=== PATIENT | female | born 1935 | race Caucasian/White ===

== ENCOUNTER → 2016-09-28 | Outpatient (REF) | payer MEDICARE ==
[2016-09-28 18:42] LABS: CALCIUM LEVEL 10.3 MG/DL (8.8-10.2); CREATININE FOR GFR 0.98 MG/DL (0.55-1.02); GLOMERULAR FILTRATION RATE 58.3 (>39); PHOSPHORUS LEVEL 3.5 MG/DL (2.5-4.9)
== END ==
LOC: M LABDRAWC 16:22
PROVIDERS: ATTEND Nurse Practitioner Family
DX: N18.3 Chronic kidney disease, stage 3 (moderate) (principal); N25.81 Secondary hyperparathyroidism of renal origin; E55.9 Vitamin D deficiency, unspecified

== ENCOUNTER → 2016-11-25 | Outpatient (REF) | payer MEDICARE ==
[2016-11-25 11:27] LABS: MEAN CORPUSCULAR HEMOGLOBIN 30.7 pg (27.0-33.0); MEAN CORPUSCULAR VOLUME 92.8 fl (80.0-96.0); RED CELL DISTRIBUTION WIDTH 12.8 % (11.5-14.5); WHITE BLOOD COUNT 5.5 K/mm3 (4.0-10.0)
[2016-11-25 11:40] LABS: ALBUMIN 3.9 GM/DL (3.2-5.2); ALBUMIN/GLOBULIN RATIO 1.34 (1.00-1.93); CALCIUM LEVEL 9.8 MG/DL (8.8-10.2); CREATININE FOR GFR 1.02 MG/DL (0.55-1.02); GLOMERULAR FILTRATION RATE 55.7 (>39); POTASSIUM SERUM 4.2 MEQ/L (3.5-5.1); TOTAL PROTEIN 6.8 GM/DL (6.4-8.2)
== END ==
LOC: M SFHCCLAY 08:28
PROVIDERS: ATTEND Nurse Practitioner Family
DX: K21.9 Gastro-esophageal reflux disease without esophagitis (principal); I10 Essential (primary) hypertension; E78.4 Other hyperlipidemia; M81.0 Age-related osteoporosis without current pathological fracture

== ENCOUNTER → 2017-03-24 | Outpatient (REF) | payer MEDICARE ==
[2017-03-24 19:08] LABS: ALBUMIN 3.9 GM/DL (3.2-5.2); CALCIUM LEVEL 10.1 MG/DL (8.8-10.2); CREATININE FOR GFR 1.18 MG/DL (0.55-1.02); PHOSPHORUS LEVEL 3.4 MG/DL (2.5-4.9); POTASSIUM SERUM 4.6 MEQ/L (3.5-5.1)
== END ==
LOC: M LAB REF 18:30
PROVIDERS: ATTEND Internal Medicine Nephrology
DX: N18.3 Chronic kidney disease, stage 3 (moderate) (principal); N25.81 Secondary hyperparathyroidism of renal origin; E55.9 Vitamin D deficiency, unspecified

== ENCOUNTER 2017-11-02 09:20 | Day surgery (SDC) | payer MEDICARE ==
[~2017-11-02 09:20] MED LIST: ACETAMINOPHEN 325 MG TAB PO; PHENYLEPHRINE HCL 10 % OPHTH. SOL 5ML OD
[2017-11-02] MEDS ORDERED: TRIMETHOBENZAMIDE 300 MG CAP PO (09:30)
[2017-11-02] MEDS: CYCLOPENTOLATE 2% OPHTH SOLN 2ML BTL OD (09:41)
[2017-11-02] MEDS: PHENYLEPHRINE 2.5% OPHTH SOL 2ML OD (09:41)
[2017-11-02] MEDS: TROPICAMIDE 1% OPHTH SOLN 2ML OD (09:42)
[2017-11-02] MEDS: LIDOCAINE 3.5 % 1ML OPHTH TOPICAL GEL OU (09:42)
[2017-11-02] MEDS: OFLOXACIN 0.3 % (OCUFLOX) OPTH SOL 5ML OD (09:42)
[2017-11-02] MEDS ORDERED: fentaNYL 100 MCG/2 ML INJECTION (J3010) As Ordered (09:55)
[2017-11-02] MEDS ORDERED: MIDAZOLAM INJ 2 MG/2 ML VIAL (J2250) As Ordered (09:55)
[2017-11-02] MEDS: POVIDONE-IODINE 5% OPHTH PREP SOL 30ML As Ordered (10:14)
[2017-11-02] MEDS: MOXIFLOXACIN IN BSS 0.25MG/0.25ML INTRACAMERAL INJ (OR EYE ONLY)(J2280) As Ordered (10:20)
[2017-11-02] MEDS: BSS with VANC/TOB/EPI for EYE CASES IR (10:20)
[2017-11-02] MEDS: TRIAMCINOLONE PRES FR 40 MG/ML 1ML(TRIESENCE)(OR EYE ONLY)(J3300 PER 1MG) As Ordered (10:20)
[2017-11-02] MEDS: HEALON DUET (HEALON 10MG/ML 0.55ML & HEALON ENDOCOAT 30MG/ML 0.85ML) As Ordered (10:20)
[2017-11-02] MEDS: LIDOCAINE 1% SDV 5 ML VIAL As Ordered (10:20)
[2017-11-02] MEDS: AcetaZOLAMIDE 500 MG ER CAP PO (10:44)
== END 2017-11-02 11:06 | disposition home or self-care (01) ==
LOC: M SDC 09:20
DX: H25.9 Unspecified age-related cataract (principal); I10 Essential (primary) hypertension; Z85.3 Personal history of malignant neoplasm of breast; Z92.3 Personal history of irradiation; F17.210 Nicotine dependence, cigarettes, uncomplicated; Z79.899 Other long term (current) drug therapy; Z88.0 Allergy status to penicillin; Z88.8 Allergy status to other drugs, medicaments and biological substances
CPT/HCPCS: 66984

== ENCOUNTER → 2017-11-10 | Outpatient (REF) | payer MEDICARE ==
[2017-11-10 17:19] LABS: APPEARANCE, URINE CLOUDY (CLEAR); BACTERIA, URINE AUTO 1+ (NEGATIVE); BILIRUBIN, URINE AUTO NEGATIVE (NEGATIVE); BLOOD, URINE BLOOD 2+ (NEGATIVE); CALCIUM OXALATE CRYSTALS SMALL; COLOR, URINE AMBER (YELLOW); GLUCOSE, URINE (UA) AUTO NEGATIVE (NEGATIVE); KETONE, URINE AUTO TRACE mg/dL (NEGATIVE); LEUKOCYTE ESTERASE, URINE AUTO 3+ (NEGATIVE); MUCUS, URINE SMALL (NEGATIVE); NITRITE, URINE AUTO NEGATIVE (NEGATIVE); PROTEIN, URINE AUTO NEGATIVE (NEGATIVE); RBC, URINE AUTO 25 /HPF (0-3); SPECIFIC GRAVITY URINE AUTO 1.021 (1.002-1.035); SQUAMOUS EPITHELIAL CELL UR AU 7 /HPF (0-6); WBC, URINE AUTO 44 /HPF (0-3)
[2017-11-10 17:27] LABS: PTH INTACT 60.9 PG/ML (18.5-88.0)
[2017-11-10 17:33] LABS: ALBUMIN 4.3 GM/DL (3.2-5.2); ANION GAP 5 MEQ/L (8-16); BLOOD UREA NITROGEN 27 MG/DL (7-18); CALCIUM LEVEL 10.5 MG/DL (8.8-10.2); CARBON DIOXIDE LEVEL 29 MEQ/L (21-32); CHLORIDE LEVEL 107 MEQ/L (98-107); CREATININE FOR GFR 1.05 MG/DL (0.55-1.30); GLOMERULAR FILTRATION RATE 53.7 (>32); GLUCOSE, FASTING 93 MG/DL (70-100); POTASSIUM SERUM 4.6 MEQ/L (3.5-5.1); SODIUM LEVEL 141 MEQ/L (136-145)
== END ==
LOC: M LABDRAWC 16:34
DX: N18.3 Chronic kidney disease, stage 3 (moderate) (principal); N25.81 Secondary hyperparathyroidism of renal origin
CPT/HCPCS: 80069

== ENCOUNTER → 2017-11-21 | Outpatient (REF) | payer MEDICARE | LOC: M SFHCCLAY 10:27 | DX: R30.0 Dysuria (principal) | CPT/HCPCS: 87086 ==

== ENCOUNTER → 2017-12-09 | Outpatient (REF) | payer MEDICARE ==
[2017-12-09 11:54] LABS: HEMATOCRIT 45.7 % (36.0-47.0); HEMOGLOBIN 14.8 g/dl (12.0-15.5); MEAN CORPUSCULAR HEMOGLOBIN 30.1 pg (27.0-33.0); MEAN CORPUSCULAR HGB CONC 32.4 g/dl (32.0-36.5); MEAN CORPUSCULAR VOLUME 93.1 fl (80.0-96.0); PLATELET COUNT, AUTOMATED 202 10^3/uL (150-450); RED BLOOD COUNT 4.91 10^6/uL (4.00-5.40); RED CELL DISTRIBUTION WIDTH 13.5 % (11.5-14.5); WHITE BLOOD COUNT 6.1 10^3/uL (4.0-10.0)
[2017-12-09 12:20] LABS: ALBUMIN/GLOBULIN RATIO 1.33 (1.00-1.93); ALKALINE PHOSPHATASE 83 U/L (45-117); ALT/SGPT 21 U/L (12-78); ANION GAP 6 MEQ/L (8-16); AST/SGOT 21 U/L (7-37); BILIRUBIN,TOTAL 0.8 MG/DL (0.2-1.0); BLOOD UREA NITROGEN 19 MG/DL (7-18); CARBON DIOXIDE LEVEL 29 MEQ/L (21-32); CHLORIDE LEVEL 108 MEQ/L (98-107); CHOLESTEROL LEVEL 164 MG/DL (<200); CHOLESTEROL RISK RATIO 2.376 (<5); CREATININE FOR GFR 1.03 MG/DL (0.55-1.30); GLOMERULAR FILTRATION RATE 54.9 (>32); GLUCOSE, FASTING 97 MG/DL (70-100); HDL CHOLESTEROL 69 MG/DL (>40); LDL CHOLESTEROL 71.8 MG/DL (<100); NON-HDL-C 95 MG/DL; POTASSIUM SERUM 4.5 MEQ/L (3.5-5.1); SODIUM LEVEL 143 MEQ/L (136-145); TRIGLYCERIDES LEVEL 116 MG/DL (<150)
[2017-12-09 14:25] LABS: T UPTAKE 35 % (30-39); THYROXINE (T4) 11.3 UG/DL (4.5-12.0)
== END ==
LOC: M SFHCCLAY 08:44
DX: E78.4 Other hyperlipidemia (principal); I10 Essential (primary) hypertension; E55.9 Vitamin D deficiency, unspecified; L65.9 Nonscarring hair loss, unspecified; Z79.899 Other long term (current) drug therapy
CPT/HCPCS: 84443

== ENCOUNTER → 2018-05-16 | Outpatient (REF) | payer MEDICARE ==
[2018-05-16 11:56] LABS: HEMATOCRIT 46.4 % (36.0-47.0); HEMOGLOBIN 14.9 g/dl (12.0-15.5); MEAN CORPUSCULAR HGB CONC 32.1 g/dl (32.0-36.5); MEAN CORPUSCULAR VOLUME 93.5 fl (80.0-96.0); PLATELET COUNT, AUTOMATED 200 10^3/uL (150-450); RED BLOOD COUNT 4.96 10^6/uL (4.00-5.40); RED CELL DISTRIBUTION WIDTH 13.2 % (11.5-14.5)
[2018-05-16 12:09] LABS: ALBUMIN 3.7 GM/DL (3.2-5.2); ANION GAP 5 MEQ/L (8-16); BLOOD UREA NITROGEN 18 MG/DL (7-18); CALCIUM LEVEL 10.1 MG/DL (8.8-10.2); CARBON DIOXIDE LEVEL 30 MEQ/L (21-32); CHLORIDE LEVEL 106 MEQ/L (98-107); CREATININE FOR GFR 1.11 MG/DL (0.55-1.30); GLOMERULAR FILTRATION RATE 50.2 (>32); GLUCOSE, FASTING 102 MG/DL (70-100); PHOSPHORUS LEVEL 2.8 MG/DL (2.5-4.9); POTASSIUM SERUM 4.3 MEQ/L (3.5-5.1); SODIUM LEVEL 141 MEQ/L (136-145)
[2018-05-16 12:16] LABS: APPEARANCE, URINE CLEAR (CLEAR); BACTERIA, URINE AUTO 1+ (NEGATIVE); BILIRUBIN, URINE AUTO NEGATIVE (NEGATIVE); BLOOD, URINE BLOOD 1+ (NEGATIVE); COLOR, URINE YELLOW (YELLOW); GLUCOSE, URINE (UA) AUTO NEGATIVE (NEGATIVE); KETONE, URINE AUTO NEGATIVE (NEGATIVE); LEUKOCYTE ESTERASE, URINE AUTO 2+ (NEGATIVE); NITRITE, URINE AUTO NEGATIVE (NEGATIVE); PROTEIN, URINE AUTO NEGATIVE (NEGATIVE); RBC, URINE AUTO 7 /HPF (0-3); SPECIFIC GRAVITY URINE AUTO 1.006 (1.002-1.035); SQUAMOUS EPITHELIAL CELL UR AU 1 /HPF (0-6); UROBILINOGEN, URINE AUTO 0.2 mg/dL (0.0-2.0); WBC, URINE AUTO 5 /HPF (0-3)
== END ==
LOC: M LABDRAWC 11:28
DX: N18.3 Chronic kidney disease, stage 3 (moderate) (principal); N25.81 Secondary hyperparathyroidism of renal origin; D63.1 Anemia in chronic kidney disease
CPT/HCPCS: 80069

== ENCOUNTER → 2018-06-15 | Outpatient (REF) | payer MEDICARE | LOC: M SFHCCLAY 10:30 | DX: E55.9 Vitamin D deficiency, unspecified (principal) | CPT/HCPCS: 82306 ==

== ENCOUNTER → 2018-11-10 | Outpatient (REF) | payer MEDICARE ==
[~2018-11-10] MED LIST changes: -ACETAMINOPHEN 325 MG TAB PO; +AMLO5TAB6 PO; +LOSA100T50 PO; +METO50TA7 PO; -PHENYLEPHRINE HCL 10 % OPHTH. SOL 5ML OD; +SIMV20TA2 PO
== END ==
LOC: M SFHCCLAY 16:11
PROVIDERS: ATTEND Nurse Practitioner Family
DX: N39.0 Urinary tract infection, site not specified (principal)
CPT/HCPCS: 81002; 87086; G0463

== ENCOUNTER → 2018-12-15 | Outpatient (REF) | payer MEDICARE ==
[2018-12-15 11:24] LABS: HEMOGLOBIN 15.2 g/dl (12.0-15.5); MEAN CORPUSCULAR HEMOGLOBIN 29.5 pg (27.0-33.0); MEAN CORPUSCULAR HGB CONC 31.7 g/dl (32.0-36.5); PLATELET COUNT, AUTOMATED 201 10^3/uL (150-450); RED BLOOD COUNT 5.16 10^6/uL (4.00-5.40)
[2018-12-15 11:55] LABS: ALBUMIN 3.5 GM/DL (3.2-5.2); BILIRUBIN,TOTAL 0.8 MG/DL (0.2-1.0); CALCIUM LEVEL 9.8 MG/DL (8.8-10.2); CHOLESTEROL RISK RATIO 3.067 (<5); GLOMERULAR FILTRATION RATE 56.6 (>32); POTASSIUM SERUM 4.8 MEQ/L (3.5-5.1); TOTAL 25(OH) VITAMIN D 24.1 NG/ML (30.0-100.0); TOTAL PROTEIN 6.9 GM/DL (6.4-8.2)
== END ==
LOC: M SFHCCLAY 09:21
PROVIDERS: ATTEND Nurse Practitioner Family
DX: I10 Essential (primary) hypertension (principal); E78.49 Other hyperlipidemia; E55.9 Vitamin D deficiency, unspecified

== ENCOUNTER → 2019-03-15 | Outpatient (REF) | payer MEDICARE ==
[2019-03-15 16:59] LABS: CREATININE FOR GFR 1.1 MG/DL (0.55-1.30); GLOMERULAR FILTRATION RATE 50.7 (>32)
== END ==
LOC: M LABDRAWC 16:14
PROVIDERS: ATTEND Surgery Vascular Surgery
DX: I71.4 Abdominal aortic aneurysm, without rupture (principal)

== ENCOUNTER → 2019-03-22 | Outpatient (CLI) | payer MEDICARE ==
[~2019-03-22] MED LIST changes: +ISOVUE-370 76% 100ML VIAL (Q9967) As Ordered ONE
--- NOTE | 2019-03-22 12:00 | REP ---
CT ANGIO abdomen and pelvis with IV contrast: History: Abdominal aortic aneurysm. Comparison CT study is from December 23, 2011. CT contrast dose: 100 mL of intravenous Isovue 370. Technique: Helical scanning is acquired. 3 mm axial images are reformatted. Sagittal and coronal MPR and maximal intensity projection images are generated. Surface rendered 3-D images are generated and viewed rotational. CT angiographic findings: There is a saccular aneurysm in the infrarenal abdominal aorta bulging from the right lateral margin of the aorta. This measures 4.4 cm in greatest anteroposterior dimension, previously 3.2 cm in 2012. There is sluggish flow evidenced by contrast mixture within the aneurysm. The aneurysm arises 4.3 cm distal to the renal artery origin. The suprarenal and infrarenal abdominal aorta show atherosclerotic calcification and some plaquing. There is atherosclerotic calcific plaquing at the origin of both renal arteries, right greater than left and there is a likely renal artery stenosis on the right. The celiac axis origin shows 50% stenosis. There is mild plaquing at the SMA with no significant SMA stenosis. The OSCAR is not well seen. There is heavy vascular calcification in the iliac arteries bilaterally and the proximal external and internal iliac arteries appear to be patent although they are heavily calcified. There is a 14 mm cyst in the kidney and a 12 mm cyst is seen in the left kidney. There is a small hypervascular area in the right lobe of the liver under a centimeter in diameter consistent with hemangioma. No other significant incidental finding. Impression: Infrarenal saccular abdominal aortic aneurysm 4.4 cm in greatest AP dimension. It appears to eccentrically involve the right lateral margin of the aorta. There is extensive aortoiliac vascular calcification. Electronically Signed by Yordy Hines MD 03/22/2019 05:30 P
== END ==
LOC: M RAD 08:49
PROVIDERS: ATTEND Surgery Vascular Surgery
DX: I71.4 Abdominal aortic aneurysm, without rupture (principal); I70.0 Atherosclerosis of aorta
CPT/HCPCS: 74174; Q9967

== ENCOUNTER → 2019-06-15 | Outpatient (REF) | payer MEDICARE ==
[~2019-06-15] MED LIST changes: -ISOVUE-370 76% 100ML VIAL (Q9967) As Ordered ONE
[2019-06-15 17:07] LABS: CHOLESTEROL RISK RATIO 2.512 (<5)
== END ==
LOC: M SFHCCLAY 13:53
PROVIDERS: ATTEND Nurse Practitioner Family
DX: E78.5 Hyperlipidemia, unspecified (principal)

== ENCOUNTER → 2019-06-15 | Outpatient (REF) | payer MEDICARE ==
[2019-06-15 17:27] LABS: HEMATOCRIT 49.9 % (36.0-47.0); HEMOGLOBIN 15.9 g/dl (12.0-15.5); MEAN CORPUSCULAR HGB CONC 31.9 g/dl (32.0-36.5); MEAN CORPUSCULAR VOLUME 94.2 fl (80.0-96.0); PLATELET COUNT, AUTOMATED 199 10^3/uL (150-450); WHITE BLOOD COUNT 6.3 10^3/uL (4.0-10.0)
[2019-06-15 17:38] LABS: APPEARANCE, URINE TURBID (CLEAR); BACTERIA, URINE AUTO NEGATIVE (NEGATIVE); BILIRUBIN, URINE AUTO NEGATIVE (NEGATIVE); BLOOD, URINE BLOOD 2+ (NEGATIVE); COLOR, URINE AMBER (YELLOW); GLUCOSE, URINE (UA) AUTO NEGATIVE (NEGATIVE); KETONE, URINE AUTO TRACE mg/dL (NEGATIVE); LEUKOCYTE ESTERASE, URINE AUTO 3+ (NEGATIVE); MUCUS, URINE SMALL (NEGATIVE); NITRITE, URINE AUTO NEGATIVE (NEGATIVE); PROTEIN, URINE AUTO 1+ mg/dL (NEGATIVE); RBC, URINE AUTO 55 /HPF (0-3); SPECIFIC GRAVITY URINE AUTO 1.019 (1.002-1.035); SQUAMOUS EPITHELIAL CELL UR AU 48 /HPF (0-6); TRANSITIONAL EPITHELIAL AUTO 6 /HPF; UROBILINOGEN, URINE AUTO 0.2 mg/dL (0.0-2.0); WBC, URINE AUTO TNTC /HPF (0-3)
[2019-06-15 17:55] LABS: ALBUMIN 4.2 GM/DL (3.2-5.2); CALCIUM LEVEL 10.4 MG/DL (8.8-10.2); CREATININE FOR GFR 1.04 MG/DL (0.55-1.30); PHOSPHORUS LEVEL 3.4 MG/DL (2.5-4.9); POTASSIUM SERUM 4.6 MEQ/L (3.5-5.1)
[2019-06-15 18:05] LABS: PTH INTACT 61.1 PG/ML (18.5-88.0)
== END ==
LOC: M LAB REF 16:42
PROVIDERS: ATTEND Internal Medicine Nephrology
DX: N18.3 Chronic kidney disease, stage 3 (moderate) (principal); M25.819 Other specified joint disorders, unspecified shoulder; D63.1 Anemia in chronic kidney disease; Z79.899 Other long term (current) drug therapy; E78.5 Hyperlipidemia, unspecified

== ENCOUNTER → 2019-06-28 | Outpatient (REF) | payer MEDICARE ==
[2019-06-28 16:32] LABS: BILIRUBIN,TOTAL 0.7 MG/DL (0.2-1.0); CALCIUM LEVEL 10.7 MG/DL (8.8-10.2); CHOLESTEROL RISK RATIO 2.549 (<5); CREATININE FOR GFR 1.04 MG/DL (0.55-1.30); POTASSIUM SERUM 4.2 MEQ/L (3.5-5.1); TOTAL PROTEIN 7.2 GM/DL (6.4-8.2)
[2019-06-28 16:41] LABS: TOTAL 25(OH) VITAMIN D 30.8 NG/ML (30.0-100.0)
[2019-06-28 16:47] LABS: HEMATOCRIT 48.2 % (36.0-47.0); HEMOGLOBIN 15.3 g/dl (12.0-15.5); MEAN CORPUSCULAR HEMOGLOBIN 29.9 pg (27.0-33.0); MEAN CORPUSCULAR HGB CONC 31.7 g/dl (32.0-36.5); MEAN CORPUSCULAR VOLUME 94.1 fl (80.0-96.0); PLATELET COUNT, AUTOMATED 194 10^3/uL (150-450); RED BLOOD COUNT 5.12 10^6/uL (4.00-5.40); WHITE BLOOD COUNT 6.1 10^3/uL (4.0-10.0)
[2019-07-01 00:06] LABS: Lyme Disease IgG/IgM Antibodie <0.91 ISR (0.00-0.90); Lyme Disease IgM Ab Quantitati <0.80 index (0.00-0.79)
== END ==
LOC: M SFHCCLAY 13:33
PROVIDERS: ATTEND Nurse Practitioner Family
DX: I10 Essential (primary) hypertension (principal); E78.5 Hyperlipidemia, unspecified; E55.9 Vitamin D deficiency, unspecified

== ENCOUNTER → 2019-12-17 | Outpatient (CLI) | payer MEDICARE ==
[~2019-12-17] MED LIST changes: -SIMV20TA2 PO; +SIMV20TA22 PO
--- NOTE | 2019-12-17 10:24 | REP ---
ABDOMINAL AORTIC SONOGRAPHY: HISTORY: Abdominal aortic aneurysm with rupture. Comparison CT study March 22, 2019 showed a 4.4 cm abdominal aortic aneurysm. FINDINGS: Retroperitoneal scanning demonstrates atherosclerotic irregularity of the abdominal aorta. The aorta measures 2.5 x 2.3 cm in AP x transverse dimension respectively at the diaphragmatic hiatus. At the level of the main renal arteries, these dimensions are 2.8 x 2.4 cm. At mid aorta, transverse dimensions are 1.4 x 1.8 cm in AP x transverse dimension. There is an aneurysmal segment of the abdominal aorta at mid aortic level measuring 4.9 x 4.6 cm AP x transverse. 5.5 cm length of aorta is aneurysmally dilated. The right and left common iliac arteries are not aneurysmal. These measure 1.2 x 1.1 and 1.0 x 1.0 cm in transverse dimension respectively. IMPRESSION: 4.9 cm infrarenal abdominal aortic aneurysm. Electronically Signed by Yordy Hines MD 12/17/2019 11:09 A
== END ==
LOC: M RAD 08:20
PROVIDERS: ATTEND Surgery Vascular Surgery
DX: I71.4 Abdominal aortic aneurysm, without rupture (principal)

== ENCOUNTER → 2019-12-18 | Outpatient (REF) | payer MEDICARE ==
[2019-12-18 16:47] LABS: APPEARANCE, URINE CLEAR (CLEAR); BACTERIA, URINE AUTO NEGATIVE (NEGATIVE); BILIRUBIN, URINE AUTO NEGATIVE (NEGATIVE); BLOOD, URINE BLOOD NEGATIVE (NEGATIVE); COLOR, URINE YELLOW (YELLOW); GLUCOSE, URINE (UA) AUTO NEGATIVE (NEGATIVE); KETONE, URINE AUTO NEGATIVE (NEGATIVE); LEUKOCYTE ESTERASE, URINE AUTO 2+ (NEGATIVE); NITRITE, URINE AUTO NEGATIVE (NEGATIVE); PROTEIN, URINE AUTO NEGATIVE (NEGATIVE); RBC, URINE AUTO 4 /HPF (0-3); SQUAMOUS EPITHELIAL CELL UR AU 0 /HPF (0-6); UROBILINOGEN, URINE AUTO 0.2 mg/dL (0.0-2.0); WBC, URINE AUTO 9 /HPF (0-3)
[2019-12-18 17:12] LABS: BASO # 0.1 10^3/uL (0.0-0.2); EOS # 0.1 10^3/uL (0.0-0.5); EOS % 1.4 % (0.0-3.0); HEMATOCRIT 45.6 % (36.0-47.0); HEMOGLOBIN 14.6 g/dl (12.0-15.5); LYMPH # 1.9 10^3/uL (1.5-5.0); MEAN CORPUSCULAR HEMOGLOBIN 30.5 pg (27.0-33.0); MEAN CORPUSCULAR VOLUME 95.4 fl (80.0-96.0); MONO # 0.5 10^3/uL (0.0-0.8); MONO % 8.5 % (0.0-5.0); NEUTROPHILS # 3.4 10^3/uL (1.5-8.5); NEUTROPHILS % 56.8 % (36.0-66.0); PLATELET COUNT, AUTOMATED 185 10^3/uL (150-450); RED BLOOD COUNT 4.78 10^6/uL (4.00-5.40); WHITE BLOOD COUNT 5.9 10^3/uL (4.0-10.0)
[2019-12-18 17:18] LABS: ALBUMIN 3.8 GM/DL (3.2-5.2); CALCIUM LEVEL 9.6 MG/DL (8.8-10.2); CREATININE FOR GFR 1.07 MG/DL (0.55-1.30); GLOMERULAR FILTRATION RATE 52.3 (>32); PHOSPHORUS LEVEL 3.3 MG/DL (2.5-4.9); POTASSIUM SERUM 4.1 MEQ/L (3.5-5.1)
[2019-12-18 17:28] LABS: PTH INTACT 56.3 PG/ML (18.5-88.0)
== END ==
LOC: M LABDRAWC 16:05
PROVIDERS: ATTEND Internal Medicine Nephrology
DX: N18.3 Chronic kidney disease, stage 3 (moderate) (principal); N25.81 Secondary hyperparathyroidism of renal origin; D63.1 Anemia in chronic kidney disease

== ENCOUNTER → 2019-12-18 | Outpatient (REF) | payer MEDICARE ==
[2019-12-18 17:12] LABS: HEMATOCRIT 44.8 % (36.0-47.0); HEMOGLOBIN 14.4 g/dl (12.0-15.5); MEAN CORPUSCULAR HEMOGLOBIN 30.4 pg (27.0-33.0); MEAN CORPUSCULAR HGB CONC 32.1 g/dl (32.0-36.5); MEAN CORPUSCULAR VOLUME 94.5 fl (80.0-96.0); PLATELET COUNT, AUTOMATED 191 10^3/uL (150-450); RED BLOOD COUNT 4.74 10^6/uL (4.00-5.40); WHITE BLOOD COUNT 5.9 10^3/uL (4.0-10.0)
[2019-12-18 17:21] LABS: ALBUMIN 3.7 GM/DL (3.2-5.2); BILIRUBIN,TOTAL 0.6 MG/DL (0.2-1.0); CHOLESTEROL RISK RATIO 2.449 (<5); CREATININE FOR GFR 1.08 MG/DL (0.55-1.30); GLOMERULAR FILTRATION RATE 51.7 (>32); POTASSIUM SERUM 4.1 MEQ/L (3.5-5.1); TOTAL PROTEIN 6.5 GM/DL (6.4-8.2)
[2019-12-18 17:29] LABS: TOTAL 25(OH) VITAMIN D 34.4 NG/ML (30.0-100.0)
== END ==
LOC: M SFHCCLAY 13:16
PROVIDERS: ATTEND Nurse Practitioner Family
DX: I12.9 Hypertensive chronic kidney disease with stage 1 through stage 4 chronic kidney disease, or unspecified chronic kidney disease (principal); E78.5 Hyperlipidemia, unspecified; E55.9 Vitamin D deficiency, unspecified; N18.3 Chronic kidney disease, stage 3 (moderate); N25.81 Secondary hyperparathyroidism of renal origin; D63.1 Anemia in chronic kidney disease

== ENCOUNTER → 2020-01-10 | Outpatient (CLI) | payer MEDICARE ==
--- NOTE | 2020-01-10 16:17 | REP ---
REASON FOR EXAM: Known abdominal aortic aneurysm. Patient has abdominal pain. COMPARISON: 03/22/2019 and 12/23/2011. The lack of intravenous contrast decreases the sensitivity of the exam. There are chronic lung base changes status quo. Limited evaluation of the solid intra-abdominal organs and gallbladder show no gross abnormalities or significant changes from the prior exam. Limited evaluation of the pancreas, adrenal glands, and kidneys show no gross abnormalities or significant changes from the prior exam. Once again, there is a large abdominal aortic aneurysm. It is difficult to evaluate without intravenous contrast. It maximal AP dimension is approximately 4.6 cm with a width of 5.2 cm and a length of 5.3 cm. The location is unchanged from the prior exam. Once again, there is heavily calcific atherosclerotic change seen in the common iliac arteries which are ectatic status quo. Limited evaluation of the bowel loops and their mesenteries show no significant changes from the prior exam. There is no free fluid or free air in the abdomen or pelvis. No intra-abdominal or intrapelvic mass or adenopathy seems to have developed on this limited exam. Bone window technique throughout the exam shows the osseous structures to be stable and intact. There are chronic changes with bilateral L5 spondylolysis and chronic discogenic changes with facet joint changes status quo. IMPRESSION: 1. Abdominal aortic aneurysm as described above. 2. Other findings and chronic changes as described above. Electronically Signed by Nishant Garrido DO 01/10/2020 04:47 P
== END ==
LOC: M RAD 10:41
PROVIDERS: ATTEND Physician Assistant
DX: I71.4 Abdominal aortic aneurysm, without rupture (principal)

== ENCOUNTER → 2020-06-16 | Outpatient (REF) | payer MEDICARE ==
[~2020-06-16] MED LIST changes: +AMLO1TAB24 PO; -AMLO5TAB6 PO
[2020-06-16 16:22] LABS: ALBUMIN 3.8 GM/DL (3.2-5.2); CALCIUM LEVEL 10.8 MG/DL (8.8-10.2); CREATININE FOR GFR 1.1 MG/DL (0.55-1.30); GLOMERULAR FILTRATION RATE 50.5 (>32); MAGNESIUM LEVEL 2.3 MG/DL (1.8-2.4); PHOSPHORUS LEVEL 4.3 MG/DL (2.5-4.9); POTASSIUM SERUM 4.3 MEQ/L (3.5-5.1)
[2020-06-16 16:28] LABS: HEMATOCRIT 47.9 % (36.0-47.0); HEMOGLOBIN 14.8 g/dl (12.0-15.5); MEAN CORPUSCULAR HEMOGLOBIN 29.9 pg (27.0-33.0); MEAN CORPUSCULAR HGB CONC 30.9 g/dl (32.0-36.5); MEAN CORPUSCULAR VOLUME 96.8 fl (80.0-96.0); PLATELET COUNT, AUTOMATED 184 10^3/uL (150-450); RED BLOOD COUNT 4.95 10^6/uL (4.00-5.40); WHITE BLOOD COUNT 6.1 10^3/uL (4.0-10.0)
[2020-06-16 16:33] LABS: PTH INTACT 44.5 PG/ML (18.5-88.0)
[2020-06-16 16:41] LABS: APPEARANCE, URINE HAZY (CLEAR); BACTERIA, URINE AUTO NEGATIVE (NEGATIVE); BILIRUBIN, URINE AUTO NEGATIVE (NEGATIVE); BLOOD, URINE BLOOD 2+ (NEGATIVE); COLOR, URINE YELLOW (YELLOW); GLUCOSE, URINE (UA) AUTO NEGATIVE (NEGATIVE); KETONE, URINE AUTO NEGATIVE (NEGATIVE); LEUKOCYTE ESTERASE, URINE AUTO 3+ (NEGATIVE); NITRITE, URINE AUTO NEGATIVE (NEGATIVE); PROTEIN, URINE AUTO NEGATIVE (NEGATIVE); RBC, URINE AUTO 5 /HPF (0-3); SPECIFIC GRAVITY URINE AUTO 1.013 (1.002-1.035); SQUAMOUS EPITHELIAL CELL UR AU 1 /HPF (0-6); UROBILINOGEN, URINE AUTO 0.2 mg/dL (0.0-2.0); WBC, URINE AUTO 32 /HPF (0-3)
== END ==
LOC: M LABDRAWC 15:45
PROVIDERS: ATTEND Nurse Practitioner Family
DX: N18.30 Chronic kidney disease, stage 3 unspecified (principal); D63.1 Anemia in chronic kidney disease; N25.81 Secondary hyperparathyroidism of renal origin; E83.42 Hypomagnesemia

== ENCOUNTER → 2020-08-21 | Outpatient (CLI) | payer MEDICARE ==
--- NOTE | 2020-08-22 07:22 | REP ---
INDICATION: AAA COMPARISON: 01/10/2020, 12/23/2011 TECHNIQUE: Axial noncontrast images from the lung bases to the pubic symphysis with coronal and sagittal reformations. This CT examination was performed using the following dose reduction techniques: Automated exposure control, adjustment of mA and/or kv according to the patient's size, and use of iterative reconstruction technique. FINDINGS: Abdominal aortic aneurysm currently measures approximately 4.8 x 4.2 cm maximal transverse and AP diameter and roughly 5.5 cm in craniocaudal length tapering to normal diameter just above the level of bifurcation to iliac arteries. Aorta is essentially unchanged compared to 01/10/2020 although considerably increased when compared with 12/23/2011. No periaortic inflammatory stranding or fluid identified to suggest leak. Significant atherosclerotic changes throughout the aorta and branch vessels noted. Liver, spleen, pancreas, gallbladder, and bilateral adrenal glands are essentially normal for noncontrast evaluation. Kidneys demonstrate stable rounded lesions likely representing simple and complex cysts without perinephric stranding or hydronephrosis. The enteric system is without obstruction or acute inflammatory process. Moderate fecal stasis noted throughout the colon. Pelvis demonstrates normal bladder and age-appropriate uterus/adnexa. No ascites. No inflammatory stranding. No adenopathy. Lung bases are clear. Visualized skeletal structures without acute osseous abnormality. IMPRESSION: Abdominal aortic aneurysm measuring 4.8 x 4.2 cm diameter unchanged from 01/10/2020. <Electronically signed by Keith Castellon > 08/22/20 0719
== END ==
LOC: M RAD 12:48
PROVIDERS: ATTEND Physician Assistant
DX: I71.4 Abdominal aortic aneurysm, without rupture (principal)

== ENCOUNTER → 2020-09-11 | Outpatient (REF) | payer MEDICARE ==
[2020-09-11 16:20] LABS: ALBUMIN 4.1 GM/DL (3.2-5.2); CALCIUM LEVEL 10.7 MG/DL (8.8-10.2); CHOLESTEROL RISK RATIO 2.82 (<5); CREATININE FOR GFR 1.17 MG/DL (0.55-1.30); PHOSPHORUS LEVEL 3.5 MG/DL (2.5-4.9); POTASSIUM SERUM 4.6 MEQ/L (3.5-5.1)
[2020-09-11 17:35] LABS: HEMOGLOBIN A1c 5.6 %
[2020-09-11 17:40] LABS: TOTAL 25(OH) VITAMIN D 22.6 NG/ML (30.0-100.0)
== END ==
LOC: M SFHCCLAY 10:49
PROVIDERS: ATTEND Nurse Practitioner Family
DX: R73.9 Hyperglycemia, unspecified (principal); E78.5 Hyperlipidemia, unspecified; I10 Essential (primary) hypertension; E55.9 Vitamin D deficiency, unspecified; Z79.899 Other long term (current) drug therapy

== ENCOUNTER → 2021-01-21 | Outpatient (REF) | payer MEDICARE | LOC: M LAB REF 16:39 | PROVIDERS: ATTEND Nurse Practitioner Family | DX: N39.0 Urinary tract infection, site not specified (principal) ==

== ENCOUNTER → 2021-05-08 | Outpatient (REF) | payer MEDICARE ==
[2021-05-08 15:30] LABS: CHOLESTEROL RISK RATIO 2.619 (<5)
[2021-05-08 15:33] LABS: TOTAL 25(OH) VITAMIN D 34.3 NG/ML (30.0-100.0)
== END ==
LOC: M SFHCCLAY 08:42
PROVIDERS: ATTEND Nurse Practitioner Family
DX: E78.5 Hyperlipidemia, unspecified (principal); E55.9 Vitamin D deficiency, unspecified

== ENCOUNTER → 2021-05-21 | Outpatient (CLI) | payer MEDICARE ==
--- NOTE | 2021-05-21 11:39 | REP ---
INDICATION: ABDOMINAL AORTIC ANEURYSM, WITHOUT RUPTURE. COMPARISON: Multiple the latest 08/21/2020 also without contrast TECHNIQUE: Standard helical technique without intravenous contrast. FINDINGS: The lung bases are clear and unchanged. The infrarenal abdominal aortic aneurysm is unchanged. Again, it measures approximately 4.8 x 4.2 cm and approximately 5.5 cm in length. There is no change in appearance of the common iliac arteries. There is calcific atherosclerotic change status quo. Limited evaluation of the solid intraabdominal organs and gallbladder show no significant changes. Limited evaluation of the bowel loops and the mesenteries show no significant changes. Limited evaluation of the pancreas, adrenal glands, and kidneys show no significant changes. Bone window technique throughout the exam shows a stable grade 1 superior endplate concave deformity involving L3 and a stable grade 1/2 L5 upon S1 spondylolisthesis. IMPRESSION: No significant change compared to the prior exam with findings as described above. <Electronically signed by Nishant Garrido > 05/21/21 [id number]
== END ==
LOC: M PLAIMG 11:02
PROVIDERS: ATTEND Surgery Vascular Surgery
DX: I71.4 Abdominal aortic aneurysm, without rupture (principal)

== ENCOUNTER → 2021-06-30 | Outpatient (CLI) | payer MEDICARE ==
--- NOTE | 2021-06-30 16:33 | REP ---
INDICATION: ANEURYSM OF ARTERY LOWER EXTREMITY COMPARISON: None. TECHNIQUE: Real-time sonographic evaluation of the lower extremity arteries bilaterally with Doppler FINDINGS: All numeric values represent peak systolic velocities in cm/SEC On the right: The ALEXANDER is 1.0 The phasicity throughout the right lower extremity is biphasic ADMISSIONS EVALUATOR: 128.4/178.7 Profunda: 165.4 SFA proximal: 187.7/246.8/111.5 SFA Mid: 115.7/136.0 SFA distal: 129.4 Popliteal: 44.9 Tibioperoneal trunk: Not seen GEOMETRY TEACHER proximal: 56.9 GEOMETRY TEACHER distal: 54.1 Peroneal proximal: 57.8 Peroneal distal: 30.2 VICKY proximal: 47.5 VICKY distal: 42.1 On the left: The ALEXANDER is 0.9 The phasicity throughout the left lower extremity is biphasic ADMISSIONS EVALUATOR: 115.0/153.7 Profunda: 124.1 SFA proximal: 160.3/290.9 SFA mid: 74.5 SFA distal: 46.3 Popliteal: 49.5 Tibioperoneal trunk not seen GEOMETRY TEACHER proximal: 32.2 GEOMETRY TEACHER distal: 26.6 Peroneal proximal: 26.4 Peroneal distal: Not seen VICKY proximal: 30.1 VCIKY distal: 24.3 Significant plaque formation was seen bilaterally mostly at the common femoral artery/superficial femoral artery junction. Seen in the right posterior popliteal fossa a complex cystic 3.6 x 1.7 x 3.7 cm sized structure was identified IMPRESSION: 1. Peak systolic velocities and phasicity as described above. 2. Right-sided Briceño's cyst as described above. 3. Other findings as described above <Electronically signed by Nishant Garrido > 06/30/21 [id number]
== END ==
LOC: M RAD 14:15
PROVIDERS: ATTEND Surgery Vascular Surgery
DX: I72.4 Aneurysm of artery of lower extremity (principal); M71.21 Synovial cyst of popliteal space [Baker], right knee

== ENCOUNTER → 2021-07-13 | Outpatient (REF) | payer MEDICARE ==
[2021-07-13 16:38] LABS: CREATININE FOR GFR 0.99 MG/DL (0.55-1.30); GLOMERULAR FILTRATION RATE 56.9 (>32)
== END ==
LOC: M LABDRAWC 15:59
PROVIDERS: ATTEND Surgery Vascular Surgery
DX: I71.4 Abdominal aortic aneurysm, without rupture (principal)

== ENCOUNTER → 2021-07-15 | Outpatient (CLI) | payer MEDICARE ==
[~2021-07-15] MED LIST changes: +ISOVUE-370 76% 100ML VIAL As Ordered ONE
--- NOTE | 2021-07-16 09:12 | REP ---
INDICATION: ABD AORTIC ANEURYSM COMPARISON: 05/21/2021. TECHNIQUE: CT angiogram of the abdomen and pelvis was performed with intravenous administration of 100 cc of Isovue 370, without oral contrast. 3D MIP reconstruction images performed. FINDINGS: Abdominal aorta: Fusiform aneurysm of the distal abdominal aorta has a maximum AP diameter 4.6 cm in transverse 5.2 cm, unchanged. Moderate diffuse plaque is noted of the abdominal aorta. Within the aneurysm itself contrast mixes with unopacified blood. Moderate plaque extends into the bilateral iliac arteries. There is very that high-grade stenosis at the origin of the right external iliac artery. There is mild to moderate stenosis at the origin of the right internal iliac artery. The remaining external iliac artery demonstrates moderate diffuse narrowing. There is also moderate diffuse narrowing of the right common femoral artery. There is moderate diffuse narrowing of the proximal visualized portion of the right superficial femoral artery. There is mild stenosis at the origin of the left internal and external iliac arteries. There is moderate diffuse narrowing of the left external iliac and common femoral arteries. There is high-grade stenosis at the origin of the left superficial femoral artery. There is moderate narrowing at the origin of the celiac artery. There is mild narrowing at the origin of the superior mesenteric artery. The inferior mesenteric artery is not seen and is likely occluded. A single main renal artery is seen bilaterally, both demonstrate mild narrowing at their origins without significant stenosis. Lung bases: Unremarkable. Liver: Normal Gallbladder: Unremarkable. Spleen: Normal. Adrenals: Normal. Pancreas: Normal. Kidneys: There is no hydronephrosis bilaterally. In the mid right kidney anteriorly a 1.5 cm cystic structure at the cortical margin does not appear to significantly enhance most compatible with a cyst. A similar appearing structure is seen in the lower pole the left kidney 1.2 cm in diameter.. Small and large bowel: Unremarkable. Free fluid: None. Adenopathy: None. Appendix: Not inflamed. Pelvis: No mass. Osseous structures: There are degenerative changes of the spine. There is spondylolysis of L5 with mild anterior grade 1 spondylolisthesis of L5 on S1, unchanged. There is mild depression of the superior endplate of L3 unchanged.. IMPRESSION: Fusiform aneurysm of the distal abdominal aorta has a maximum AP diameter 4.6 cm in transverse 5.2 cm, unchanged. High-grade stenosis at the origin of the right external iliac artery with moderate diffuse narrowing of the more distal right external iliac, common femoral and proximal superficial femoral arteries. There is mild stenosis at the origin of the left external iliac artery with moderate diffuse narrowing of the more distal left external iliac and common femoral arteries. There is high-grade stenosis at the origin of the left superficial femoral artery. <Electronically signed by Travis Bolanos > 07/16/21 0951
== END ==
LOC: M RAD 17:00
PROVIDERS: ATTEND Surgery Vascular Surgery
DX: I71.4 Abdominal aortic aneurysm, without rupture (principal)
CPT/HCPCS: 74174; Q9967

== ENCOUNTER → 2021-07-27 | Outpatient (REF) | payer MEDICARE ==
[~2021-07-27] MED LIST changes: -ISOVUE-370 76% 100ML VIAL As Ordered ONE; +LOSA100T45 PO; -LOSA100T50 PO
[2021-07-27 18:34] LABS: MAGNESIUM LEVEL 2.1 MG/DL (1.8-2.4); TOTAL PROTEIN 7.5 GM/DL (6.4-8.2)
[2021-07-29 10:32] LABS: ALBUMIN 4.81 GM/DL (3.29-5.55); ALBUMIN % 64.1 % (55.8-66.1); ALPHA-1-GLOBULIN % 4.8 % (2.9-4.9); ALPHA-1-GLOBULINS 0.36 GM/DL (0.17-0.41); ALPHA-2-GLOBULINS % 10.7 % (7.1-11.8); BETA-1-GLOBULINS 0.47 GM/DL (0.28-0.60); BETA-1-GLOBULINS % 6.2 % (4.7-7.2); BETA-2-GLOBULINS 0.32 GM/DL (0.19-0.55); BETA-2-GLOBULINS % 4.2 % (3.2-6.5); GAMMA GLOBULINS 0.75 GM/DL (0.65-1.58)
== END ==
LOC: M LAB REF 16:36
PROVIDERS: ATTEND Nurse Practitioner Family
DX: E83.52 Hypercalcemia (principal); N18.31 Chronic kidney disease, stage 3a; E83.42 Hypomagnesemia

== ENCOUNTER → 2022-05-28 | Outpatient (REF) | payer MEDICARE ==
[2022-05-28 11:51] LABS: BASO % 0.6 % (0.0-1.0); EOS # 0.1 10^3/uL (0.0-0.5); EOS % 1.2 % (0.0-3.0); HEMATOCRIT 47.6 % (36.0-47.0); LYMPH % 29.5 % (24.0-44.0); MEAN CORPUSCULAR HEMOGLOBIN 30.2 pg (27.0-33.0); MEAN CORPUSCULAR HGB CONC 31.5 g/dl (32.0-36.5); MONO # 0.8 10^3/uL (0.0-0.8); MONO % 11.6 % (2.0-8.0); NEUTROPHILS # 3.9 10^3/uL (1.5-8.5); PLATELET COUNT, AUTOMATED 186 10^3/uL (150-450); RED BLOOD COUNT 4.96 10^6/uL (4.00-5.40); WHITE BLOOD COUNT 6.9 10^3/uL (4.0-10.0)
[2022-05-28 12:46] LABS: BILIRUBIN,TOTAL 1.2 MG/DL (0.2-1.0); CALCIUM LEVEL 10.4 MG/DL (8.8-10.2); CREATININE FOR GFR 0.98 MG/DL (0.55-1.30); GLOMERULAR FILTRATION RATE 57.4 (>32)
== END ==
LOC: M SFHCCLAY 09:11
PROVIDERS: ATTEND Nurse Practitioner Family
DX: Z00.00 Encounter for general adult medical examination without abnormal findings (principal); I10 Essential (primary) hypertension; E55.9 Vitamin D deficiency, unspecified; K21.9 Gastro-esophageal reflux disease without esophagitis; E78.5 Hyperlipidemia, unspecified; I71.40 Abdominal aortic aneurysm, without rupture, unspecified

== ENCOUNTER → 2022-06-23 | Outpatient (CLI) | payer MEDICARE ==
[~2022-06-23] MED LIST changes: +ALBU6.7H6 INH; +ANAS1TAB2 PO; +ASPI81CH33 PO; +AZIT-10 PO; +FLUTISP; +HYDR-3713 PO; +LEXA1TAB PO; +LIDO1CRE42 TOP; +MIRT1TAB PO; +OMEP-173 PO; +OXYC-517 PO; +PRED50TA PO; +RITA5TAB PO
== END ==
LOC: M WHC 08:40
PROVIDERS: ATTEND Surgery
DX: R59.9 Enlarged lymph nodes, unspecified (principal)

== ENCOUNTER → 2022-06-23 | Outpatient (CLI) | payer MEDICARE ==
[2022-06-23 10:14] VITALS: BP 138/72
== END ==
LOC: M WHCPRO 08:44
PROVIDERS: ATTEND Surgery
DX: R59.9 Enlarged lymph nodes, unspecified (principal)
CPT/HCPCS: 10035; 11104; 38505; 76882; 88305; A4648

== ENCOUNTER → 2022-06-30 | Outpatient (CLI) | payer MEDICARE | LOC: M PLALAB 11:47 | PROVIDERS: ATTEND Surgery | DX: Z13.79 Encounter for other screening for genetic and chromosomal anomalies (principal) ==

== ENCOUNTER → 2022-07-06 | Outpatient (CLI) | payer MEDICARE | LOC: M ONCM 13:27 | PROVIDERS: ATTEND Dietitian, Registered | DX: Z71.3 Dietary counseling and surveillance (principal); C50.812 Malignant neoplasm of overlapping sites of left female breast ==

== ENCOUNTER → 2022-07-16 | Outpatient (CLI) | payer MEDICARE ==
[~2022-07-16] MED LIST changes: -ALBU6.7H6 INH; -AZIT-10 PO; -FLUTISP; -LEXA1TAB PO; -LIDO1CRE42 TOP; -MIRT1TAB PO; -OMEP-173 PO; -OXYC-517 PO; -PRED50TA PO; -RITA5TAB PO
== END ==
LOC: M ONCR 08:44
PROVIDERS: ATTEND General Practice
DX: C50.111 Malignant neoplasm of central portion of right female breast (principal); C50.812 Malignant neoplasm of overlapping sites of left female breast; C78.01 Secondary malignant neoplasm of right lung; C79.51 Secondary malignant neoplasm of bone; Z79.82 Long term (current) use of aspirin; Z79.899 Other long term (current) drug therapy; Z80.41 Family history of malignant neoplasm of ovary; Z86.79 Personal history of other diseases of the circulatory system; Z87.891 Personal history of nicotine dependence; Z88.0 Allergy status to penicillin; Z88.5 Allergy status to narcotic agent; Z88.6 Allergy status to analgesic agent; Z88.8 Allergy status to other drugs, medicaments and biological substances; Z92.3 Personal history of irradiation

== ENCOUNTER → 2022-07-20 | Outpatient (REF) | payer MEDICARE ==
[2022-07-20 17:10] LABS: INR 0.87
[2022-07-20 17:11] LABS: PARTIAL THROMBOPLASTIN TIME 30.5 SECONDS (24.8-34.2)
== END ==
LOC: M LABDRAWC 16:40
PROVIDERS: ATTEND Internal Medicine Hematology & Oncology
DX: C50.912 Malignant neoplasm of unspecified site of left female breast (principal)

== ENCOUNTER → 2022-07-25 | Outpatient (CLI) | payer MEDICARE | LOC: M LABSMTC 09:57 | PROVIDERS: ATTEND Anesthesiology | DX: Z01.818 Encounter for other preprocedural examination (principal); Z11.52 Encounter for screening for COVID-19 ==

== ENCOUNTER → 2022-07-26 | Outpatient (CLI) | payer MEDICARE ==
[~2022-07-26] MED LIST changes: +ALBU6.7H6 INH; +AZIT-10 PO; +FLUTISP; +LEXA1TAB PO; +LIDO1CRE42 TOP; +LIDOCAINE 1% MDV 20ML VIAL As Ordered ONE; +MIDAZOLAM INJ 2MG/2ML VIAL As Ordered ONE; +MIRT1TAB PO; +NS 1,000 ML IV SCH; +OMEP-173 PO; +OXYC-517 PO; +PRED50TA PO; +RITA5TAB PO; +VANCOMYCIN 1000MG/20ML VIAL As Ordered ONE; +VANCOMYCIN HCL 1,000 MG, VIAL MATE ADAPTER 1 EACH in NS 250 ML IV ONE; +diphenhydrAMINE 50MG/ML VIAL As Ordered ONE; +fentaNYL 100 MCG/2 ML INJECTION As Ordered ONE
[2022-07-26 17:30] VITALS: BP 160/69
== END ==
LOC: M IRPRO 12:23
PROVIDERS: ATTEND Internal Medicine Hematology & Oncology
DX: C50.812 Malignant neoplasm of overlapping sites of left female breast (principal)
CPT/HCPCS: 36561; 99152; 99153; C1769; C1788; C1894

== ENCOUNTER 2022-08-04 10:24 | Outpatient (RCR) | payer MEDICARE ==
[~2022-08-04 10:24] MED LIST changes: -ALBU6.7H6 INH; -AZIT-10 PO; -FLUTISP; -LEXA1TAB PO; -LIDO1CRE42 TOP; -LIDOCAINE 1% MDV 20ML VIAL As Ordered ONE; -MIDAZOLAM INJ 2MG/2ML VIAL As Ordered ONE; -MIRT1TAB PO; -NS 1,000 ML IV SCH; -OMEP-173 PO; -OXYC-517 PO; -PRED50TA PO; -RITA5TAB PO; -VANCOMYCIN 1000MG/20ML VIAL As Ordered ONE; -VANCOMYCIN HCL 1,000 MG, VIAL MATE ADAPTER 1 EACH in NS 250 ML IV ONE; -diphenhydrAMINE 50MG/ML VIAL As Ordered ONE; -fentaNYL 100 MCG/2 ML INJECTION As Ordered ONE
[2022-08-04] MEDS ORDERED: AZIT-10 PO (11:05)
[2022-08-04] MEDS ORDERED: PRED50TA PO (11:05)
[2022-08-04 11:42] LABS: BASO % 0.5 % (0.0-1.0); EOS % 0.4 % (0.0-3.0); HEMATOCRIT 46.7 % (36.0-47.0); HEMOGLOBIN 14.6 g/dl (12.0-15.5); LYMPH # 0.9 10^3/uL (1.5-5.0); LYMPH % 12.2 % (24.0-44.0); MEAN CORPUSCULAR HEMOGLOBIN 29.6 pg (27.0-33.0); MEAN CORPUSCULAR HGB CONC 31.3 g/dl (32.0-36.5); MEAN CORPUSCULAR VOLUME 94.7 fl (80.0-96.0); MONO # 0.6 10^3/uL (0.0-0.8); NEUTROPHILS # 6.1 10^3/uL (1.5-8.5); NEUTROPHILS % 78.6 % (36.0-66.0); PLATELET COUNT, AUTOMATED 210 10^3/uL (150-450); RED BLOOD COUNT 4.93 10^6/uL (4.00-5.40); WHITE BLOOD COUNT 7.7 10^3/uL (4.0-10.0)
[2022-08-04 12:04] LABS: ALKALINE PHOSPHATASE 116 U/L (46-116); ALT/SGPT 27 U/L (7.0-40); AST/SGOT 44 U/L (<34); BLOOD UREA NITROGEN 18 MG/DL (9-23); CALCIUM LEVEL 10.7 MG/DL (8.3-10.6); CARBON DIOXIDE LEVEL 27 MMOL/L (20-31); CHLORIDE LEVEL 103 MMOL/L (98-107); CREATININE FOR GFR 0.77 MG/DL (0.55-1.30); GLOMERULAR FILTRATION RATE > 60.0 (>32); GLUCOSE, FASTING 126 MG/DL (74-106); SODIUM LEVEL 137 MMOL/L (136-145); TOTAL PROTEIN 7.1 G/DL (5.7-8.2)
[2022-08-04] MEDS ORDERED: OXYC-517 PO (16:23)
[2022-08-10] MEDS ORDERED: LIDO1CRE42 TOP (11:54)
[2022-08-10] MEDS ORDERED: ALBU6.7H6 INH (14:43)
== END 2022-08-07 ==
LOC: M ONCR 10:24
PROVIDERS: ATTEND General Practice
DX: C50.111 Malignant neoplasm of central portion of right female breast (principal); C50.812 Malignant neoplasm of overlapping sites of left female breast

== ENCOUNTER → 2022-08-06 | Outpatient (CLI) | payer MEDICARE ==
[~2022-08-06] MED LIST changes: +ALBU6.7H6 INH; +AZIT-10 PO; +FLUTISP; +LEXA1TAB PO; +LIDO1CRE42 TOP; +MIRT1TAB PO; +OMEP-173 PO; +OXYC-517 PO; +PRED50TA PO
== END ==
LOC: M CARPUL 10:57
PROVIDERS: ATTEND Internal Medicine Hematology & Oncology
DX: I35.9 Nonrheumatic aortic valve disorder, unspecified (principal); I34.81 Nonrheumatic mitral (valve) annulus calcification; C50.912 Malignant neoplasm of unspecified site of left female breast; C50.911 Malignant neoplasm of unspecified site of right female breast

== ENCOUNTER → 2022-08-10 | Outpatient (POV) | payer MEDICARE ==
[~2022-08-10] VITALS: Ht 162.6 cm; Wt 39.0 kg
[~2022-08-10] MED LIST changes: -FLUTISP; -LEXA1TAB PO; -MIRT1TAB PO; -OMEP-173 PO
[2022-08-10 11:05] VITALS: BP 135/74
== END ==
LOC: M IRPOV 10:41
PROVIDERS: ATTEND Radiology Diagnostic Radiology
DX: Z45.2 Encounter for adjustment and management of vascular access device (principal); Z88.0 Allergy status to penicillin; Z88.5 Allergy status to narcotic agent; Z88.6 Allergy status to analgesic agent; Z88.8 Allergy status to other drugs, medicaments and biological substances

== ENCOUNTER → 2022-08-17 | Outpatient (CLI) | payer MEDICARE ==
[~2022-08-17] VITALS: Ht 160 cm; Wt 37.6 kg
[~2022-08-17] MED LIST changes: +FLUTISP; +LEXA1TAB PO; +MIRT1TAB PO; +OMEP-173 PO
[2022-08-17 14:25] VITALS: BP 105/63
== END ==
LOC: M PAL 14:15
PROVIDERS: ATTEND Nurse Practitioner Adult Health
DX: C50.912 Malignant neoplasm of unspecified site of left female breast (principal); C50.911 Malignant neoplasm of unspecified site of right female breast; C78.00 Secondary malignant neoplasm of unspecified lung; C79.51 Secondary malignant neoplasm of bone; C78.7 Secondary malignant neoplasm of liver and intrahepatic bile duct; Z51.5 Encounter for palliative care; R53.83 Other fatigue; R63.0 Anorexia; Z66 Do not resuscitate; E83.52 Hypercalcemia; Z88.0 Allergy status to penicillin; Z88.8 Allergy status to other drugs, medicaments and biological substances; Z88.5 Allergy status to narcotic agent; Z79.891 Long term (current) use of opiate analgesic; Z79.899 Other long term (current) drug therapy; Z79.82 Long term (current) use of aspirin

== ENCOUNTER → 2022-08-31 | Outpatient (CLI) | payer MEDICARE ==
[~2022-08-31] VITALS: Ht 162.6 cm; Wt 37.9 kg
[~2022-08-31] MED LIST changes: +RITA5TAB PO
[2022-08-31 14:20] VITALS: BP 98/55
== END ==
LOC: M PAL 14:00
PROVIDERS: ATTEND Nurse Practitioner Adult Health
DX: C50.912 Malignant neoplasm of unspecified site of left female breast (principal); C50.911 Malignant neoplasm of unspecified site of right female breast; C78.00 Secondary malignant neoplasm of unspecified lung; Z51.5 Encounter for palliative care; Z79.51 Long term (current) use of inhaled steroids; C78.7 Secondary malignant neoplasm of liver and intrahepatic bile duct; R53.83 Other fatigue; R09.89 Other specified symptoms and signs involving the circulatory and respiratory systems; R63.0 Anorexia; Z66 Do not resuscitate; E83.52 Hypercalcemia; Z88.0 Allergy status to penicillin; Z88.8 Allergy status to other drugs, medicaments and biological substances; Z88.5 Allergy status to narcotic agent; Z79.891 Long term (current) use of opiate analgesic; Z79.899 Other long term (current) drug therapy; Z79.82 Long term (current) use of aspirin; Z80.41 Family history of malignant neoplasm of ovary

== ENCOUNTER → 2022-09-07 | Outpatient (RCR) | payer MEDICARE | LOC: M ONCR 08-10 11:02 | PROVIDERS: ATTEND General Practice | DX: C50.111 Malignant neoplasm of central portion of right female breast (principal) ==

== ENCOUNTER → 2022-09-07 | Outpatient (CLI) | payer MEDICARE ==
[~2022-09-07] MED LIST changes: +BARIUM SULFATE 700 MG TABLET (E-Z-DISK) As Ordered ONE; +E-Z-PAQUE 96% w/w SUSP 176GM BTL As Ordered ONE; +VARIBAR NECTAR 40% w/v 240ML SUSP BTL As Ordered ONE; +VARIBAR PUDDING 40% w/v 230ML TUBE As Ordered ONE
== END ==
LOC: M RAD 12:14
PROVIDERS: ATTEND General Practice
DX: R13.10 Dysphagia, unspecified (principal)

== ENCOUNTER 2022-09-10 15:04 | Outpatient (RCR) | payer MEDICARE ==
[~2022-09-10 15:04] MED LIST changes: -BARIUM SULFATE 700 MG TABLET (E-Z-DISK) As Ordered ONE; -E-Z-PAQUE 96% w/w SUSP 176GM BTL As Ordered ONE; -VARIBAR NECTAR 40% w/v 240ML SUSP BTL As Ordered ONE; -VARIBAR PUDDING 40% w/v 230ML TUBE As Ordered ONE
[2022-09-21] MEDS ORDERED: LIDO1CRE42 TOP (14:04)
== END 2022-10-05 ==
LOC: M ONCR 15:04
PROVIDERS: ATTEND General Practice
DX: C50.111 Malignant neoplasm of central portion of right female breast (principal)
CPT/HCPCS: 77336; 77385; G0463

== ENCOUNTER → 2022-09-21 | Outpatient (CLI) | payer MEDICARE | LOC: M ONCR 14:01 | PROVIDERS: ATTEND General Practice | DX: L59.8 Other specified disorders of the skin and subcutaneous tissue related to radiation (principal) ==

== ENCOUNTER → 2022-09-29 | Outpatient (CLI) | payer MEDICARE | LOC: M WHC 12:23 | PROVIDERS: ATTEND Specialist | DX: M81.0 Age-related osteoporosis without current pathological fracture (principal); C50.919 Malignant neoplasm of unspecified site of unspecified female breast ==

== ENCOUNTER → 2022-10-11 | Outpatient (CLI) | payer MEDICARE | LOC: M ONCR 11:47 | PROVIDERS: ATTEND General Practice | DX: C50.912 Malignant neoplasm of unspecified site of left female breast (principal); C50.911 Malignant neoplasm of unspecified site of right female breast; Z79.811 Long term (current) use of aromatase inhibitors; Z92.3 Personal history of irradiation ==

== ENCOUNTER → 2022-12-13 | Outpatient (CLI) | payer MEDICARE ==
[~2022-12-13] MED LIST changes: +FLUT50SP17; -FLUTISP; -LOSA100T45 PO; +LOSA100T46 PO
== END ==
LOC: M ONCR 12:50
PROVIDERS: ATTEND General Practice
DX: C50.111 Malignant neoplasm of central portion of right female breast (principal); C50.812 Malignant neoplasm of overlapping sites of left female breast; Z92.3 Personal history of irradiation; Z79.51 Long term (current) use of inhaled steroids; Z79.811 Long term (current) use of aromatase inhibitors; Z79.899 Other long term (current) drug therapy; Z87.891 Personal history of nicotine dependence; Z88.0 Allergy status to penicillin; Z88.1 Allergy status to other antibiotic agents; Z88.5 Allergy status to narcotic agent; Z88.8 Allergy status to other drugs, medicaments and biological substances

== ENCOUNTER → 2022-12-16 | Outpatient (CLI) | payer MEDICARE | LOC: M CARPUL 14:05 | PROVIDERS: ATTEND Specialist | DX: I42.7 Cardiomyopathy due to drug and external agent (principal) ==

== ENCOUNTER → 2023-01-21 | Outpatient (CLI) | payer MEDICARE ==
[~2023-01-21] MED LIST changes: +ISOVUE-370 76% 100ML VIAL As Ordered ONE
== END ==
LOC: M RAD 10:48
PROVIDERS: ATTEND Physician Assistant Medical
DX: R49.0 Dysphonia (principal)
CPT/HCPCS: 70491; Q9967

== ENCOUNTER → 2023-01-28 | Outpatient (CLI) | payer MEDICARE ==
[~2023-01-28] MED LIST changes: -ISOVUE-370 76% 100ML VIAL As Ordered ONE; +PROHANCE 279.3MG/ML 15ML VIAL As Ordered ONE
== END ==
LOC: M RAD 10:30
PROVIDERS: ATTEND Nurse Practitioner
DX: C50.919 Malignant neoplasm of unspecified site of unspecified female breast (principal)

== ENCOUNTER → 2023-02-16 | Outpatient (CLI) | payer MEDICARE ==
[~2023-02-16] MED LIST changes: -LIDO1CRE42 TOP; +LIDO30CR18 TOP; -PROHANCE 279.3MG/ML 15ML VIAL As Ordered ONE
== END ==
LOC: M RAD 11:25
PROVIDERS: ATTEND Otolaryngology
DX: E04.1 Nontoxic single thyroid nodule (principal)

== ENCOUNTER → 2023-02-21 | Outpatient (CLI) | payer MEDICARE ==
[~2023-02-21] MED LIST changes: +LIDOCAINE 1% MDV 20ML VIAL As Ordered ONE
[2023-02-21 13:20] VITALS: BP 141/66; TEMP 97.2; O2SAT 97
== END ==
LOC: M IRPRO 13:11
PROVIDERS: ATTEND Otolaryngology
DX: E04.1 Nontoxic single thyroid nodule (principal)

== ENCOUNTER → 2023-03-01 | Outpatient (CLI) | payer MEDICARE ==
[~2023-03-01] MED LIST changes: +ALPR0.5T6 PO; +ISOVUE-370 76% 100ML VIAL ONE; -LIDOCAINE 1% MDV 20ML VIAL As Ordered ONE
== END ==
LOC: M PLAIMG 09:57
PROVIDERS: ATTEND Internal Medicine Medical Oncology
DX: C50.019 Malignant neoplasm of nipple and areola, unspecified female breast (principal); J44.9 Chronic obstructive pulmonary disease, unspecified
CPT/HCPCS: 71260; Q9967

== ENCOUNTER → 2023-03-15 | Outpatient (CLI) | payer MEDICARE ==
[~2023-03-15] MED LIST changes: -ISOVUE-370 76% 100ML VIAL ONE
== END ==
LOC: M ONCR 12:46
PROVIDERS: ATTEND General Practice
DX: C50.111 Malignant neoplasm of central portion of right female breast (principal); C50.812 Malignant neoplasm of overlapping sites of left female breast; Z79.891 Long term (current) use of opiate analgesic; Z79.899 Other long term (current) drug therapy; Z88.0 Allergy status to penicillin; Z88.5 Allergy status to narcotic agent; Z88.6 Allergy status to analgesic agent; Z88.8 Allergy status to other drugs, medicaments and biological substances

== ENCOUNTER → 2023-03-21 | Outpatient (REF) | payer MEDICARE | LOC: M SFHCCLAY 09:27 | PROVIDERS: ATTEND Nurse Practitioner Family | DX: Z79.899 Other long term (current) drug therapy (principal); W57.XXXA Bitten or stung by nonvenomous insect and other nonvenomous arthropods, initial encounter ==

== ENCOUNTER → 2023-03-22 | Outpatient (CLI) | payer MEDICARE | LOC: M RAD 08:29 | PROVIDERS: ATTEND Specialist | DX: C79.51 Secondary malignant neoplasm of bone (principal); C50.919 Malignant neoplasm of unspecified site of unspecified female breast | CPT/HCPCS: 78306; A9503 ==

== ENCOUNTER → 2023-04-21 | Outpatient (CLI) | payer MEDICARE ==
[~2023-04-21] VITALS: Ht 160 cm; Wt 38.5 kg
[~2023-04-21] MED LIST changes: +ASPI81TA26 PO; +MEGE40SU5 PO; +SENN-186 PO
[2023-04-21 12:32] VITALS: BP 115/69; O2SAT 97
== END ==
LOC: M PAL 11:45
PROVIDERS: ATTEND Nurse Practitioner Adult Health
DX: C79.51 Secondary malignant neoplasm of bone (principal); C50.911 Malignant neoplasm of unspecified site of right female breast; C50.912 Malignant neoplasm of unspecified site of left female breast; G89.3 Neoplasm related pain (acute) (chronic); K59.00 Constipation, unspecified; R63.6 Underweight; R63.0 Anorexia; Z66 Do not resuscitate; Z79.51 Long term (current) use of inhaled steroids; Z79.82 Long term (current) use of aspirin; Z79.891 Long term (current) use of opiate analgesic; Z79.899 Other long term (current) drug therapy; Z80.41 Family history of malignant neoplasm of ovary; Z87.891 Personal history of nicotine dependence; Z92.3 Personal history of irradiation

== ENCOUNTER → 2023-05-03 | Outpatient (CLI) | payer MEDICARE ==
[~2023-05-03] MED LIST changes: -FLUT50SP17; +FLUTISP; +OMEP40CA4 PO
== END ==
LOC: M ONCM 09:10
PROVIDERS: ATTEND Dietitian, Registered
DX: Z53.8 Procedure and treatment not carried out for other reasons (principal)

== ENCOUNTER → 2023-05-31 | Outpatient (CLI) | payer MEDICARE ==
[~2023-05-31] MED LIST changes: +FLUT50SP17; -FLUTISP
== END ==
LOC: M CARPUL 12:46
PROVIDERS: ATTEND Specialist
DX: C50.919 Malignant neoplasm of unspecified site of unspecified female breast (principal); Z79.899 Other long term (current) drug therapy

== ENCOUNTER → 2023-07-11 | Outpatient (CLI) | payer MEDICARE ==
[~2023-07-11] MED LIST changes: -FLUT50SP17; +FLUTISP
== END ==
LOC: M CARPUL 11:02
PROVIDERS: ATTEND Specialist
DX: C34.90 Malignant neoplasm of unspecified part of unspecified bronchus or lung (principal); Z79.899 Other long term (current) drug therapy

== ENCOUNTER → 2023-07-26 | Outpatient (CLI) | payer MEDICARE | LOC: M ONCR 10:43 | PROVIDERS: ATTEND General Practice | DX: C50.111 Malignant neoplasm of central portion of right female breast (principal); C50.812 Malignant neoplasm of overlapping sites of left female breast; R53.81 Other malaise; R64 Cachexia; Z71.2 Person consulting for explanation of examination or test findings; Z79.51 Long term (current) use of inhaled steroids; Z79.811 Long term (current) use of aromatase inhibitors; Z79.82 Long term (current) use of aspirin; Z79.899 Other long term (current) drug therapy; Z88.0 Allergy status to penicillin; Z88.5 Allergy status to narcotic agent; Z88.6 Allergy status to analgesic agent; Z88.8 Allergy status to other drugs, medicaments and biological substances; Z92.3 Personal history of irradiation ==

== ENCOUNTER → 2023-08-19 | Outpatient (CLI) | payer MEDICARE ==
[~2023-08-19] MED LIST changes: +GASTROGRAFIN SOLUTION 30ML As Ordered ONE; +ISOVUE-370 76% 100ML VIAL As Ordered ONE
== END ==
LOC: M RAD 09:17
PROVIDERS: ATTEND Nurse Practitioner
DX: C79.81 Secondary malignant neoplasm of breast (principal); C78.7 Secondary malignant neoplasm of liver and intrahepatic bile duct; C79.51 Secondary malignant neoplasm of bone; M43.8X4 Other specified deforming dorsopathies, thoracic region; J43.2 Centrilobular emphysema
CPT/HCPCS: 71260; 74177; Q9963; Q9967

== ENCOUNTER → 2023-09-15 | Outpatient (CLI) | payer MEDICARE ==
[~2023-09-15] MED LIST changes: +AZIT-12 PO; -GASTROGRAFIN SOLUTION 30ML As Ordered ONE; -ISOVUE-370 76% 100ML VIAL As Ordered ONE
== END ==
LOC: M ONCR 12:49
PROVIDERS: ATTEND General Practice
DX: C50.812 Malignant neoplasm of overlapping sites of left female breast (principal); C50.111 Malignant neoplasm of central portion of right female breast; R03.0 Elevated blood-pressure reading, without diagnosis of hypertension; I71.40 Abdominal aortic aneurysm, without rupture, unspecified; C79.51 Secondary malignant neoplasm of bone; C78.7 Secondary malignant neoplasm of liver and intrahepatic bile duct; F17.210 Nicotine dependence, cigarettes, uncomplicated; Z79.51 Long term (current) use of inhaled steroids; Z79.82 Long term (current) use of aspirin; Z79.899 Other long term (current) drug therapy; Z88.0 Allergy status to penicillin; Z88.1 Allergy status to other antibiotic agents; Z88.5 Allergy status to narcotic agent; Z88.8 Allergy status to other drugs, medicaments and biological substances; Z92.3 Personal history of irradiation; Z98.890 Other specified postprocedural states

== ENCOUNTER → 2023-11-18 | Outpatient (CLI) | payer MEDICARE ==
[~2023-11-18] MED LIST changes: +AMLO1TAB24; +GASTROGRAFIN SOLUTION 30ML As Ordered ONE; +ISOVUE-370 76% 100ML VIAL As Ordered ONE; -MEGE40SU5 PO; +MEGE40SU6 PO; +METO1TAB87
== END ==
LOC: M RAD 10:58
PROVIDERS: ATTEND Nurse Practitioner
DX: C50.919 Malignant neoplasm of unspecified site of unspecified female breast (principal)
CPT/HCPCS: 71260; 74177; Q9963; Q9967

== ENCOUNTER → 2023-11-29 | Outpatient (REF) | payer MEDICARE ==
[~2023-11-29] MED LIST changes: -GASTROGRAFIN SOLUTION 30ML As Ordered ONE; -ISOVUE-370 76% 100ML VIAL As Ordered ONE; +TAMO20TA8 PO
== END ==
LOC: M LAB REF 09:02
PROVIDERS: ATTEND Nurse Practitioner Family
DX: N18.31 Chronic kidney disease, stage 3a (principal); D63.1 Anemia in chronic kidney disease

== ENCOUNTER → 2024-01-30 | Outpatient (CLI) | payer MEDICARE ==
[~2024-01-30] MED LIST changes: +LEVO1TAB39 PO; +ONDA-84 PO; +PROC10TA5 PO; +VENTAER INH
== END ==
LOC: M RAD 10:53
PROVIDERS: ATTEND Specialist
DX: C50.919 Malignant neoplasm of unspecified site of unspecified female breast (principal)

== ENCOUNTER 2024-02-01 11:35 | Emergency (ER) | payer MEDICARE ==
[~2024-02-01] VITALS: Ht 162.6 cm; Wt 36.9 kg
[2024-02-01 13:40] LABS: VENOUS BASE EXCESS -1.7 (-2.0-2.0); VENOUS HCO3 24.6 MMOL/L (23.0-27.0); VENOUS O2 SATURATION 44.5 % (60.0-80.0); VENOUS PARTIAL PRESSURE O2 24.2 mmHg (30.0-50.0); VENOUS PH 7.327 UNITS (7.330-7.430); VENOUS STANDARD HCO3 21.9 MMOL/L
[2024-02-01 13:47] LABS: EOS % 0.5 % (0.0-3.0); HEMATOCRIT 36.7 % (36.0-47.0); HEMOGLOBIN 11.6 g/dl (12.0-15.5); LYMPH # 0.7 10^3/uL (1.5-5.0); LYMPH % 17.7 % (24.0-44.0); MEAN CORPUSCULAR HEMOGLOBIN 30.5 pg (27.0-33.0); MEAN CORPUSCULAR HGB CONC 31.6 g/dl (32.0-36.5); MEAN CORPUSCULAR VOLUME 96.6 fl (80.0-96.0); MONO # 0.5 10^3/uL (0.0-0.8); MONO % 12.6 % (2.0-8.0); NEUTROPHILS # 2.6 10^3/uL (1.5-8.5); NEUTROPHILS % 67.4 % (36.0-66.0); PLATELET COUNT, AUTOMATED 179 10^3/uL (150-450); WHITE BLOOD COUNT 3.9 10^3/uL (4.0-10.0)
[2024-02-01 14:14] LABS: CK-MB VALUE MASS 1.4 NG/ML (<3.6)
[2024-02-01 14:16] LABS: ALBUMIN 2.8 G/DL (3.2-5.2); BILIRUBIN,DIRECT 0.1 MG/DL (<0.4); BILIRUBIN,TOTAL 0.4 MG/DL (0.3-1.2); TOTAL PROTEIN 5.4 G/DL (5.7-8.2)
[2024-02-01 14:18] LABS: THYROID STIMULATING HORMONE 2.091 uIU/ML (0.55-4.78)
[2024-02-01 14:25] LABS: MB/CK RELATIVE INDEX 3.33 (< OR =4)
[2024-02-01] MEDS ORDERED: ISOVUE-370 76% 100ML VIAL As Ordered ONE (15:45)
[2024-02-01 16:20] LABS: CK-MB VALUE MASS 1.2 NG/ML (<3.6)
[2024-02-01 16:23] LABS: MB/CK RELATIVE INDEX 2.92 (< OR =4)
[2024-02-01 18:37] VITALS: BP 150/67; TEMP 97.8; O2SAT 96
[2024-02-01 19:07] LABS: CK-MB VALUE MASS 1.3 NG/ML (<3.6)
[2024-02-01 19:08] LABS: MB/CK RELATIVE INDEX 3.02 (< OR =4)
== END 2024-02-01 19:28 | disposition home or self-care (01) ==
LOC: M ED 11:35
DX: M79.604 Pain in right leg (principal); C79.51 Secondary malignant neoplasm of bone; I10 Essential (primary) hypertension; Z85.3 Personal history of malignant neoplasm of breast; F17.210 Nicotine dependence, cigarettes, uncomplicated; Z88.0 Allergy status to penicillin; Z88.5 Allergy status to narcotic agent; Z88.8 Allergy status to other drugs, medicaments and biological substances; Z79.51 Long term (current) use of inhaled steroids; Z79.899 Other long term (current) drug therapy
CPT/HCPCS: 36415; 71045; 71275; 73502; 73552; 80047; 80076; 82550; 82553; 82803; 83605; 83880; 84436; 84443; 84484; 85025; 93005; 93971; 94760; 99284; Q9967

== ENCOUNTER → 2024-02-08 | Outpatient (CLI) | payer MEDICARE | LOC: M CARPUL 11:01 | PROVIDERS: ATTEND Specialist | DX: C50.919 Malignant neoplasm of unspecified site of unspecified female breast (principal); Z79.899 Other long term (current) drug therapy ==

== ENCOUNTER → 2024-02-17 | Outpatient (REF) | payer MEDICARE ==
[2024-02-17 17:14] LABS: ALBUMIN 3.3 G/DL (3.2-5.2); ALKALINE PHOSPHATASE 77 U/L (46-116); ALT/SGPT 11 U/L (7.0-40); AST/SGOT 18 U/L (<34); BILIRUBIN,TOTAL 0.6 MG/DL (0.3-1.2); BLOOD UREA NITROGEN 20 MG/DL (9-23); CALCIUM LEVEL 8.4 MG/DL (8.3-10.6); CARBON DIOXIDE LEVEL 29 MMOL/L (20-31); CHLORIDE LEVEL 107 MMOL/L (98-107); CREATININE FOR GFR 0.74 MG/DL (0.55-1.30); GLOMERULAR FILTRATION RATE > 60.0 (>32); GLUCOSE, FASTING 140 MG/DL (74-106); SODIUM LEVEL 139 MMOL/L (136-145); TOTAL PROTEIN 5.6 G/DL (5.7-8.2)
[2024-02-17 17:18] LABS: BASO # 0.1 10^3/uL (0.0-0.2); BASO % 1.1 % (0.0-1.0); EOS % 0.9 % (0.0-3.0); HEMATOCRIT 40.5 % (36.0-47.0); HEMOGLOBIN 12.9 g/dl (12.0-15.5); LYMPH # 0.7 10^3/uL (1.5-5.0); LYMPH % 15.7 % (24.0-44.0); MEAN CORPUSCULAR HEMOGLOBIN 31.1 pg (27.0-33.0); MEAN CORPUSCULAR HGB CONC 31.9 g/dl (32.0-36.5); MEAN CORPUSCULAR VOLUME 97.6 fl (80.0-96.0); MONO # 0.4 10^3/uL (0.0-0.8); MONO % 8.6 % (2.0-8.0); NEUTROPHILS # 3.4 10^3/uL (1.5-8.5); NEUTROPHILS % 73.5 % (36.0-66.0); PLATELET COUNT, AUTOMATED 209 10^3/uL (150-450); RED BLOOD COUNT 4.15 10^6/uL (4.00-5.40); WHITE BLOOD COUNT 4.7 10^3/uL (4.0-10.0)
== END ==
LOC: M LABDRAWC 16:37
PROVIDERS: ATTEND Specialist
DX: C50.919 Malignant neoplasm of unspecified site of unspecified female breast (principal)

== ENCOUNTER → 2024-02-21 | Outpatient (CLI) | payer MEDICARE | LOC: M ONCR 12:55 | PROVIDERS: ATTEND General Practice | DX: C50.111 Malignant neoplasm of central portion of right female breast (principal); C50.912 Malignant neoplasm of unspecified site of left female breast; C79.51 Secondary malignant neoplasm of bone; Z79.899 Other long term (current) drug therapy; Z88.0 Allergy status to penicillin; Z88.5 Allergy status to narcotic agent; Z88.8 Allergy status to other drugs, medicaments and biological substances ==

== ENCOUNTER → 2024-03-07 | Outpatient (RCR) | payer MEDICARE | LOC: M ONCR 02-24 13:42 | PROVIDERS: ATTEND General Practice | DX: Z51.0 Encounter for antineoplastic radiation therapy (principal); C79.51 Secondary malignant neoplasm of bone ==

== ENCOUNTER 2024-03-09 12:42 | Outpatient (RCR) | payer MEDICARE ==
[2024-03-12] MEDS ORDERED: VENTAER INH (13:02)
[2024-03-22] MEDS ORDERED: MULT-40 PO (22:49)
[2024-03-22] MEDS ORDERED: ASPI-615 PO (22:49)
[2024-03-22] MEDS ORDERED: METO25TA4 PO (22:49)
[2024-03-25] MEDS ORDERED: MAGN400T2 PO (10:11)
[2024-03-25] MEDS ORDERED: ROSU20TA61 PO (10:11)
[2024-03-25] MEDS ORDERED: CIPR500T39 PO (10:11)
[2024-03-25] MEDS ORDERED: PROB250C PO (10:11)
[2024-03-25] MEDS ORDERED: POTA-150 PO (10:11)
[2024-03-25] MEDS ORDERED: METR-265 PO (10:11)
== END 2024-04-07 ==
LOC: M ONCR 12:42
PROVIDERS: ATTEND General Practice
DX: Z51.0 Encounter for antineoplastic radiation therapy (principal); C79.51 Secondary malignant neoplasm of bone

== ENCOUNTER → 2024-03-09 | Outpatient (REF) | payer MEDICARE ==
[2024-03-09 17:39] LABS: BASO % 1.3 % (0.0-1.0); EOS # 0.1 10^3/uL (0.0-0.5); EOS % 4.6 % (0.0-3.0); HEMATOCRIT 38.7 % (36.0-47.0); HEMOGLOBIN 12.1 g/dl (12.0-15.5); LYMPH # 0.3 10^3/uL (1.5-5.0); LYMPH % 12.1 % (24.0-44.0); MEAN CORPUSCULAR HEMOGLOBIN 31.4 pg (27.0-33.0); MEAN CORPUSCULAR HGB CONC 31.3 g/dl (32.0-36.5); MEAN CORPUSCULAR VOLUME 100.5 fl (80.0-96.0); MONO # 0.2 10^3/uL (0.0-0.8); MONO % 8.8 % (2.0-8.0); NEUTROPHILS # 1.8 10^3/uL (1.5-8.5); NEUTROPHILS % 73.2 % (36.0-66.0); PLATELET COUNT, AUTOMATED 176 10^3/uL (150-450); RED BLOOD COUNT 3.85 10^6/uL (4.00-5.40); WHITE BLOOD COUNT 2.4 10^3/uL (4.0-10.0)
[2024-03-09 17:41] LABS: ALBUMIN 3.1 G/DL (3.2-5.2); ALKALINE PHOSPHATASE 73 U/L (46-116); ALT/SGPT 11 U/L (7.0-40); AST/SGOT 17 U/L (<34); BILIRUBIN,TOTAL 0.5 MG/DL (0.3-1.2); BLOOD UREA NITROGEN 22 MG/DL (9-23); CALCIUM LEVEL 8.5 MG/DL (8.3-10.6); CARBON DIOXIDE LEVEL 26 MMOL/L (20-31); CHLORIDE LEVEL 108 MMOL/L (98-107); CREATININE FOR GFR 0.71 MG/DL (0.55-1.30); GLOMERULAR FILTRATION RATE > 60.0 (>32); GLUCOSE, FASTING 109 MG/DL (74-106); POTASSIUM SERUM 4.4 MMOL/L (3.5-5.1); SODIUM LEVEL 140 MMOL/L (136-145); TOTAL PROTEIN 5.6 G/DL (5.7-8.2)
== END ==
LOC: M LABDRAWC 16:33
PROVIDERS: ATTEND Specialist
DX: C50.919 Malignant neoplasm of unspecified site of unspecified female breast (principal)

== ENCOUNTER 2024-03-22 15:55 | Inpatient (IN) | payer MEDICARE ==
[~2024-03-22] VITALS: Ht 157.5 cm; Wt 37.6 kg
[2024-03-22 18:10] LABS: HEMATOCRIT 36.7 % (36.0-47.0); HEMOGLOBIN 12.1 g/dl (12.0-15.5); MEAN CORPUSCULAR HEMOGLOBIN 32.2 pg (27.0-33.0); MEAN CORPUSCULAR VOLUME 97.6 fl (80.0-96.0); RED BLOOD COUNT 3.76 10^6/uL (4.00-5.40); WHITE BLOOD COUNT 1.3 10^3/uL (4.0-10.0)
[2024-03-22 18:15] LABS: INR 1.15; PARTIAL THROMBOPLASTIN TIME 25.3 SECONDS (24.8-34.2); PROTHROMBIN TIME 14.3 SECONDS (12.5-14.5)
[2024-03-22 18:21] LABS: LIPASE 20 U/L (12-53)
[2024-03-22 18:32] LABS: ALBUMIN 2.6 G/DL (3.2-5.2); ALKALINE PHOSPHATASE 49 U/L (46-116); ALT/SGPT < 9 U/L (7.0-40); AST/SGOT 20 U/L (<34); BILIRUBIN,DIRECT 0.1 MG/DL (<0.4); BILIRUBIN,TOTAL 0.4 MG/DL (0.3-1.2); BLOOD UREA NITROGEN 20 MG/DL (9-23); CARBON DIOXIDE LEVEL 22 MMOL/L (20-31); CHLORIDE LEVEL 105 MMOL/L (98-107); CREATININE FOR GFR 0.65 MG/DL (0.55-1.30); GLOMERULAR FILTRATION RATE > 60.0 (>32); GLUCOSE, FASTING 96 MG/DL (74-106); POTASSIUM SERUM 3.6 MMOL/L (3.5-5.1); SODIUM LEVEL 135 MMOL/L (136-145)
[2024-03-22] MEDS ORDERED: ISOVUE-370 76% 100ML VIAL As Ordered ONE (18:50)
[2024-03-22 19:10] LABS: PLATELET COUNT, AUTOMATED 88 10^3/uL (150-450)
[2024-03-22 19:12] LABS: BASOPHILS 1 % (0-1); EOSINOPHILS 11 % (0-3); LYMPHOCYTES 10 % (16-44); METAMYELOCYTES 1 % (0-0); MONOCYTES 14 % (0-5); NEUTROPHILS 57 % (28-66); PLATELET ESTIMATE DECREASED (NORMAL)
[2024-03-22 19:13] LABS: SCHISTOCYTES 1+
[2024-03-22 19:14] LABS: POIKILOCYTOSIS 1+
[2024-03-22 19:15] LABS: TEAR DROP CELLS 2+
[2024-03-22 19:16] LABS: HELMET CELLS 1+
[2024-03-22] MEDS ORDERED: SUCRALFATE SUSP 1GM/10ML UD PO SCH (21:00)
[2024-03-22] MEDS ORDERED: CIPROFLOXACIN 400 MG in IV 1 EA IV ONE (21:05)
[2024-03-22] MEDS ORDERED: metroNIDAZOLE 500 MG in IV 1 EA IV ONE (21:05)
[2024-03-22] MEDS ORDERED: NS 1,000 ML IV SCH (22:20)
[2024-03-22] MEDS ORDERED: ACETAMINOPHEN TAB 650MG DOSE (2X325MG) PO PRN (22:20)
[2024-03-22] MEDS ORDERED: ASPI-615 PO (22:49)
[2024-03-22] MEDS ORDERED: MULT-40 PO (22:49)
[2024-03-22] MEDS ORDERED: METO25TA4 PO (22:49)
[2024-03-22] MEDS ORDERED: HOME MED LIST COMPLETE! XX SCH (22:50)
[2024-03-22] MEDS ORDERED: ALBUTEROL 90 MCG/ACT 8GM HFA INHALER INH PRN (23:15)
[2024-03-22] MEDS: PANTOPRAZOLE 40MG VIAL IV SCH (23:49)
[2024-03-22] MEDS: KCL 20MEQ in NS 1000ML 1,000 ML IV SCH (23:49)
[2024-03-23 00:55] VITALS: BP 145/76; TEMP 97.5; O2SAT 96
[2024-03-23] MEDS: metroNIDAZOLE 500 MG in IV 1 EA IV SCH (01:33)
[2024-03-23] MEDS: oxyCODONE 5MG TAB PO PRN (01:34)
[2024-03-23] MEDS: CIPROFLOXACIN 400 MG in IV 1 EA IV SCH (02:51)
[2024-03-23 04:00] VITALS: BP 103/55; TEMP 98.4; O2SAT 95
[2024-03-23 06:02] LABS: BASO % 2.1 % (0.0-1.0); EOS # 0.1 10^3/uL (0.0-0.5); EOS % 10.3 % (0.0-3.0); HEMOGLOBIN 10.5 g/dl (12.0-15.5); LYMPH # 0.2 10^3/uL (1.5-5.0); LYMPH % 15.5 % (24.0-44.0); MEAN CORPUSCULAR HEMOGLOBIN 32.2 pg (27.0-33.0); MEAN CORPUSCULAR HGB CONC 32.8 g/dl (32.0-36.5); MEAN CORPUSCULAR VOLUME 98.2 fl (80.0-96.0); MONO # 0.2 10^3/uL (0.0-0.8); MONO % 20.6 % (2.0-8.0); NEUTROPHILS % 50.5 % (36.0-66.0); RED BLOOD COUNT 3.26 10^6/uL (4.00-5.40)
[2024-03-23 06:06] LABS: NEUTROPHILS # 0.5 10^3/uL (1.5-8.5); PLATELET COUNT, AUTOMATED 79 10^3/uL (150-450)
[2024-03-23 06:24] LABS: ALBUMIN 2.3 G/DL (3.2-5.2); ALKALINE PHOSPHATASE 42 U/L (46-116); ALT/SGPT < 9 U/L (7.0-40); AST/SGOT 14 U/L (<34); BILIRUBIN,TOTAL 0.3 MG/DL (0.3-1.2); BLOOD UREA NITROGEN 17 MG/DL (9-23); CALCIUM LEVEL 6.7 MG/DL (8.3-10.6); CARBON DIOXIDE LEVEL 22 MMOL/L (20-31); CHLORIDE LEVEL 108 MMOL/L (98-107); CREATININE FOR GFR 0.61 MG/DL (0.55-1.30); GLOMERULAR FILTRATION RATE > 60.0 (>32); GLUCOSE, FASTING 123 MG/DL (74-106); MAGNESIUM LEVEL 1.5 MG/DL (1.8-2.4); POTASSIUM SERUM 3.7 MMOL/L (3.5-5.1); SODIUM LEVEL 137 MMOL/L (136-145); TOTAL PROTEIN 4.5 G/DL (5.7-8.2)
[2024-03-23 08:18] LABS: PROCALCITONIN 0.18 ng/ml
[2024-03-23] MEDS: METOPROLOL TART 25 MG TABLET PO SCH (08:38)
[2024-03-23] MEDS: ESCITALOPRAM OXALATE 10 MG TAB (LEXAPRO) PO SCH (08:38)
[2024-03-23] MEDS: amLODIPine 5 MG TAB PO SCH (08:38)
[2024-03-23] MEDS: TAMOXIFEN CITRATE 10 MG TAB PO SCH (10:50)
[2024-03-23] MEDS: ASPIRIN 81MG ENTERIC TABLET PO SCH (10:50)
[2024-03-23] MEDS: MAG SULF 1GM/100ML (MAG RUN) 1 GM in IV 1 EA IV SCH (10:50)
[2024-03-23 12:00] VITALS: BP 103/48; TEMP 97.3; O2SAT 94
[2024-03-23] MEDS ORDERED: FILGRASTIM 300MCG 0.5ML SYRINGE **SC ADMINISTRATION ONLY SC STA (12:18)
[2024-03-23] MEDS: EMLA CREAM 5GM TUBE (LIDOCAINE/PRILOCAINE) TOP ONE (12:44)
[2024-03-23] MEDS: NICOTINE 21MG/24HR 1 EA TRANSDERMAL TD SCH (12:44)
[2024-03-23] MEDS: ONDANSETRON 4MG 2ML VIAL IV PRN (12:44)
[2024-03-23] MEDS: FILGRASTIM 300MCG 0.5ML SYRINGE **SC ADMINISTRATION ONLY SC SCH (15:09)
[2024-03-23] MEDS: OMEPRAZOLE 20MG CAP PO SCH (16:02)
[2024-03-23] MEDS: LR 1,000 ML IV SCH (16:03)
[2024-03-23 19:47] VITALS: BP 124/54; TEMP 97.9; O2SAT 92
[2024-03-23] MEDS: ROSUVASTATIN 10 MG TAB (CRESTOR) PO SCH (20:21)
[2024-03-24 04:17] VITALS: BP 118/52; TEMP 97.9; O2SAT 92
[2024-03-24 07:09] LABS: BASO % 0.9 % (0.0-1.0); EOS # 0.1 10^3/uL (0.0-0.5); HEMATOCRIT 31.7 % (36.0-47.0); HEMOGLOBIN 10.6 g/dl (12.0-15.5); LYMPH # 0.2 10^3/uL (1.5-5.0); MEAN CORPUSCULAR HEMOGLOBIN 32.3 pg (27.0-33.0); MEAN CORPUSCULAR HGB CONC 33.4 g/dl (32.0-36.5); MEAN CORPUSCULAR VOLUME 96.6 fl (80.0-96.0); MONO # 0.4 10^3/uL (0.0-0.8); MONO % 7.8 % (2.0-8.0); NEUTROPHILS # 3.8 10^3/uL (1.5-8.5); NEUTROPHILS % 83.7 % (36.0-66.0); PLATELET COUNT, AUTOMATED 106 10^3/uL (150-450); RED BLOOD COUNT 3.28 10^6/uL (4.00-5.40); WHITE BLOOD COUNT 4.5 10^3/uL (4.0-10.0)
[2024-03-24 07:19] LABS: ALBUMIN 2.3 G/DL (3.2-5.2); ALKALINE PHOSPHATASE 52 U/L (46-116); ALT/SGPT 10 U/L (7.0-40); AST/SGOT 16 U/L (<34); BILIRUBIN,TOTAL 0.3 MG/DL (0.3-1.2); BLOOD UREA NITROGEN 14 MG/DL (9-23); CALCIUM LEVEL 6.3 MG/DL (8.3-10.6); CARBON DIOXIDE LEVEL 23 MMOL/L (20-31); CHLORIDE LEVEL 107 MMOL/L (98-107); CREATININE FOR GFR 0.59 MG/DL (0.55-1.30); GLOMERULAR FILTRATION RATE > 60.0 (>32); GLUCOSE, FASTING 135 MG/DL (74-106); MAGNESIUM LEVEL 1.7 MG/DL (1.8-2.4); POTASSIUM SERUM 3.3 MMOL/L (3.5-5.1); SODIUM LEVEL 135 MMOL/L (136-145); TOTAL PROTEIN 4.3 G/DL (5.7-8.2)
[2024-03-24] MEDS: MAG SULF 1GM/100ML (MAG RUN) 1 GM in IV 1 EA IV SCH (08:04)
[2024-03-24] MEDS: POTASSIUM CHLORIDE 10MEQ SR TABLET PO STA (08:08)
[2024-03-24] MEDS ORDERED: PANTOPRAZOLE 40MG VIAL IV SCH (09:00)
[2024-03-24 12:02] VITALS: BP 109/47; TEMP 97.5; O2SAT 91
[2024-03-24] MEDS: LACTOBACILLUS ACIDOPHILUS CAP (BACID) PO SCH (16:38)
[2024-03-24 19:46] VITALS: BP 125/60; TEMP 97.5; O2SAT 91
[2024-03-25 04:26] VITALS: BP 105/49; TEMP 97.9; O2SAT 90
[2024-03-25 07:11] LABS: HEMATOCRIT 31.5 % (36.0-47.0); HEMOGLOBIN 10.3 g/dl (12.0-15.5); MEAN CORPUSCULAR HEMOGLOBIN 31.6 pg (27.0-33.0); MEAN CORPUSCULAR HGB CONC 32.7 g/dl (32.0-36.5); MEAN CORPUSCULAR VOLUME 96.6 fl (80.0-96.0); PLATELET COUNT, AUTOMATED 109 10^3/uL (150-450); RED BLOOD COUNT 3.26 10^6/uL (4.00-5.40); WHITE BLOOD COUNT 6.6 10^3/uL (4.0-10.0)
[2024-03-25 07:32] LABS: ALKALINE PHOSPHATASE 43 U/L (46-116); ALT/SGPT < 9 U/L (7.0-40); AST/SGOT 13 U/L (<34); BILIRUBIN,TOTAL 0.3 MG/DL (0.3-1.2); BLOOD UREA NITROGEN 8 MG/DL (9-23); CALCIUM LEVEL 6.1 MG/DL (8.3-10.6); CARBON DIOXIDE LEVEL 22 MMOL/L (20-31); CHLORIDE LEVEL 107 MMOL/L (98-107); GLOMERULAR FILTRATION RATE > 60.0 (>32); GLUCOSE, FASTING 100 MG/DL (74-106); MAGNESIUM LEVEL 1.7 MG/DL (1.8-2.4); POTASSIUM SERUM 3.6 MMOL/L (3.5-5.1); SODIUM LEVEL 136 MMOL/L (136-145); TOTAL PROTEIN 3.9 G/DL (5.7-8.2)
[2024-03-25 08:04] VITALS: BP 136/60
[2024-03-25 08:15] VITALS: O2SAT 84
[2024-03-25 08:16] VITALS: O2SAT 92
[2024-03-25 08:38] LABS: EOSINOPHILS 3 % (0-3); LYMPHOCYTES 1 % (16-44); METAMYELOCYTES 4 % (0-0); MONOCYTES 6 % (0-5); MYELOCYTES 1 % (0-0); NEUTROPHILS 34 % (28-66)
[2024-03-25 08:39] LABS: ANISOCYTOSIS 1+; PLATELET ESTIMATE DECREASED (NORMAL)
[2024-03-25] MEDS ORDERED: PROB250C PO (10:11)
[2024-03-25] MEDS ORDERED: CIPR500T39 PO (10:11)
[2024-03-25] MEDS ORDERED: POTA-150 PO (10:11)
[2024-03-25] MEDS ORDERED: MAGN400T2 PO (10:11)
[2024-03-25] MEDS ORDERED: ROSU20TA61 PO (10:11)
[2024-03-25] MEDS ORDERED: METR-265 PO (10:11)
== END 2024-03-25 12:26 | disposition home health service (06) | DRG 391 ==
LOC: M ED 15:55 → M ED INP 15:56 → M MSPAV 03-23 00:52 → OBSVTOIN 03-23 13:36
PROVIDERS: ADMIT Preventive Medicine Undersea and Hyperbaric Medicine; ATTEND Internal Medicine
DX: A09 Infectious gastroenteritis and colitis, unspecified (principal); D61.810 Antineoplastic chemotherapy induced pancytopenia; C78.7 Secondary malignant neoplasm of liver and intrahepatic bile duct; C79.51 Secondary malignant neoplasm of bone; C78.00 Secondary malignant neoplasm of unspecified lung; D84.821 Immunodeficiency due to drugs; R18.8 Other ascites; K52.0 Gastroenteritis and colitis due to radiation; F17.210 Nicotine dependence, cigarettes, uncomplicated; I10 Essential (primary) hypertension; D70.1 Agranulocytosis secondary to cancer chemotherapy; Z66 Do not resuscitate; T45.1X5A Adverse effect of antineoplastic and immunosuppressive drugs, initial encounter; E83.42 Hypomagnesemia; K21.9 Gastro-esophageal reflux disease without esophagitis; J45.909 Unspecified asthma, uncomplicated; E87.6 Hypokalemia; C50.812 Malignant neoplasm of overlapping sites of left female breast; F39 Unspecified mood [affective] disorder; I70.222 Atherosclerosis of native arteries of extremities with rest pain, left leg; Z79.69 Long term (current) use of other immunomodulators and immunosuppressants; Z79.82 Long term (current) use of aspirin; Z88.0 Allergy status to penicillin; Z79.899 Other long term (current) drug therapy; Z92.3 Personal history of irradiation; Z88.5 Allergy status to narcotic agent; Z88.8 Allergy status to other drugs, medicaments and biological substances

== ENCOUNTER → 2024-03-28 | Outpatient (REF) | payer MEDICARE ==
[~2024-03-28] MED LIST changes: +ASPI-615 PO; +CIPR500T39 PO; +MAGN400T2 PO; +METO25TA4 PO; +METR-265 PO; +MULT-40 PO; +POTA-150 PO; +PROB250C PO; +ROSU20TA61 PO
[2024-03-28 17:48] LABS: ALBUMIN 2.3 G/DL (3.2-5.2); ALKALINE PHOSPHATASE 59 U/L (46-116); ALT/SGPT 11 U/L (7.0-40); AST/SGOT 21 U/L (<34); BILIRUBIN,TOTAL 0.3 MG/DL (0.3-1.2); BLOOD UREA NITROGEN 10 MG/DL (9-23); CALCIUM LEVEL 6.4 MG/DL (8.3-10.6); CARBON DIOXIDE LEVEL 26 MMOL/L (20-31); CHLORIDE LEVEL 105 MMOL/L (98-107); GLOMERULAR FILTRATION RATE > 60.0 (>32); GLUCOSE, FASTING 128 MG/DL (74-106); HEMATOCRIT 36.3 % (36.0-47.0); HEMOGLOBIN 11.9 g/dl (12.0-15.5); MAGNESIUM LEVEL 1.5 MG/DL (1.8-2.4); MEAN CORPUSCULAR HEMOGLOBIN 31.8 pg (27.0-33.0); MEAN CORPUSCULAR HGB CONC 32.8 g/dl (32.0-36.5); MEAN CORPUSCULAR VOLUME 97.1 fl (80.0-96.0); PLATELET COUNT, AUTOMATED 126 10^3/uL (150-450); POTASSIUM SERUM 3.1 MMOL/L (3.5-5.1); RED BLOOD COUNT 3.74 10^6/uL (4.00-5.40); SODIUM LEVEL 135 MMOL/L (136-145); TOTAL PROTEIN 4.4 G/DL (5.7-8.2); WHITE BLOOD COUNT 5.7 10^3/uL (4.0-10.0)
[2024-03-28 19:07] LABS: ATYPICAL LYMPH 4 % (0-5); EOSINOPHILS 1 % (0-3); LYMPHOCYTES 5 % (16-44); METAMYELOCYTES 1 % (0-0); MONOCYTES 5 % (0-5); MYELOCYTES 1 % (0-0); NEUTROPHILS 77 % (28-66)
[2024-03-28 19:08] LABS: PLATELET ESTIMATE DECREASED (NORMAL)
[2024-03-28 19:09] LABS: ANISOCYTOSIS 1+
[2024-03-28 19:10] LABS: POLYCHROMASIA 1+
[2024-03-28 19:11] LABS: TOXIC GRANULATION 1+
== END ==
LOC: M SFHCCLAY 11:29
PROVIDERS: ATTEND Nurse Practitioner Family
DX: K52.9 Noninfective gastroenteritis and colitis, unspecified (principal); E87.6 Hypokalemia; E83.42 Hypomagnesemia